=== PATIENT | male | born 1960 | race Caucasian/White ===

== ENCOUNTER 2019-11-22 14:30 | Observation (INO) | payer MEDICARE, MEDICAID ==
[~2019-11-22] VITALS: Ht 167.6 cm; Wt 82.6 kg
[2019-11-22] VITALS (8 sets, daily range): BP systolic 95–128; BP diastolic 63–81; BMI 29.4
--- NOTE | ~2019-11-22 | HEMODYNAMI ---
PATIENT:TIFF MORALES MEDICAL RECORD: [id number] : 60 LOCATION[facility] [id number] ADMISSION DATE: 11/22/19 Generatedon:11/23/201915:09 Patient name: TIFF MORALES Patient #: [id number] SSN: [id number] : 1960 Date of study: 11/23/2019 Page: Of Hemodynamic Procedure Report Patient Data Patient Demographics Procedure consent was obtained First Name: TIFF Gender: Male Last Name: CARMEN : 1960 Patient #: [id number] Age: 59 year(s) Race: SSN: [id number] Additional ID: [id number] Contact details [address]: [address] [place] [address] State: [place] City: [place] Zip code: [address] Past Medical History Allergies: No known allergies Admission Admission Data Admission Date: 11/22/2019 Admission Time: 15:15 Arrival Date: 11/23/2019 Arrival Time: 0:00 Room #: 2123 Insurance Payor: Medicare [facility] #: [id number] Height (in.): 66.14 BSA: 1.93 (m2) Height (cm.): 168 BMI: 29.41 (kg/m2) Weight (lbs.): 182.98 Weight (kg.): 83 Lab Results Lab Result Date: 11/23/2019 Lab Result Time: 0:00 Biochemistry Name Units Result Min Max BUN mg/dl 14 --(--*-)-- 7 18 CK-MB ng/ml 3.1 --(---*)-- 0 3.6 Creatinine mg/dl 1.1 --(--*-)-- 0.6 1.3 eGFR ml/min 73.94549 *-(----)-- 90 120 NONAFRICAN Troponin l ng/ml 0.017 --(-*--)-- 0 0.06 CBC Name Units Result Min Max Hematocrit % 46.4 --(-*--)-- 42 54 Hemoglobin g/dl 15.1 --(-*--)-- 13.5 17.5 Procedure Procedure Types Cath Procedure Diagnostic Procedure [facility] w/Coronaries w/Grafts Sedation Charges Moderate Sedation up to 15 minutes Procedure Description Procedure Date Procedure Date: 11/23/2019 Procedure Start Time: 14:46 Procedure End Time: 15:07 Procedure Staff Name Function Cameron Bal MD Performing Physician Shaye Schneider RT Monitor Joanna Lewis RT Scrub Andrés Vásquez RN Nurse Procedure Data Cath Procedure Fluoroscopy Diagnostic fluoroscopy Total fluoroscopy Time: 3.8 time: 3.8 min min Diagnostic fluoroscopy Total fluoroscopy dose: 628 dose: 628 mGy mGy Contrast Material Contrast Material Type Amount (ml) Isovue 300 62 Entry Location Entry Primary Successful Side Size Upsize Upsize Entry Closure Succes sful Closure Location (Fr) 1 (Fr) 2 (Fr) Remarks Device Remarks Femoral Left 5 Fr Exoseal artery Estimated blood loss: 5 ml Diagnostic catheters Device Type Used For End Catheter Placement MULTIPACK JL 4.0 5Fr Left Coronary catheter Angiography DIAGNOSTIC JL 5 5Fr Left Coronary catheter ([id number]) Angiography DIAGNOSTIC AR MOD 5Fr Procedure Catheter ([id number]) DIAGNOSTIC IM 5Fr Procedure catheter ([id number]) MULTIPACK Pigtail 5 Fr LV Angiography catheter Procedure Complications No complications Procedure Medications Medication Administration Route Dosage Oxygen etCO2 Nasal cannula 2 l/min Lidocaine 2% added to field 20 Heparin Flush Bag added to field 2 bags (1000units/500ml NS) 0.9% NaCl I.V. 100 ml/hr Benadryl I.V. 50 mg Heparin Drip (02671cuije/250 D5W) Versed I.V. 1 mg Fentanyl I.V. 50 mcg Zofran I.V. 4 mg Versed I.V. 1 mg Fentanyl I.V. 50 mcg Versed I.V. 1 mg Fentanyl I.V. 50 mcg Hemodynamics Rest BSA: 1.93 (m2) HGB: 15.1 (g/dl) O2 Consumption: Estimated: 263.36 (ml/min) O2 Co nsumption indexed: Estimated:136.46 (ml/min/m) Heart Rate: 120 (bpm) Pressure Samples Time Site Value (mmHg) Purpose Heart Use Rate(bpm) 15:00 LV 133/11,103 Snapshot 90 Gradients Valve Time Site Site Mean SEP/DFP Peak To Heart Use 1 2 (mmHg) (sec/min) Peak Rate (mmHg) (bpm) Aortic 15:01 LV AO 86 Snapshots Pre Cath Intra NCS Post Cath Vital Signs Time Heart Resp SPO2 etCO2 NIBP (mmHg) Rhythm Pain Sedation Rate (ipm) (%) (mmHg) Status Level (bpm) 14:27:25 61 15 95 0 141/68(109) NSR 0 (11) 10(A) , No pain 14:31:41 60 14 96 32.2 132/78(91) NSR 0 (11) 10(A) , No pain 14:35:59 71 17 98 27 131/81(113) NSR 0 (11) 10(A) , No pain 14:40:17 60 15 98 29.9 134/76(96) NSR 0 (11) 10(A) , No pain 14:44:37 60 19 94 27.7 124/80(100) NSR 0 (11) 10(A) , No pain 14:48:43 70 16 95 11.9 113/82(94) NSR 0 (11) 10(A) , No pain 14:52:55 68 12 96 0 121/75(97) NSR 0 (11) 9(A) , No pain 14:57:06 72 11 97 0 132/84(113) NSR 0 (11) 9(A) , No pain 15:01:25 68 10 96 4.4 123/79(98) NSR 0 (11) 9(A) , No pain 15:05:40 66 13 97 0 136/76(106) NSR 0 (11) 10(A) , No pain Medications Time Medication Route Dose Verified Delivered Reason Notes Effectiveness by by 14:20:11 Heparin Drip units/hr Cameron Buffie Per ([id number]/250 stopped Valeriano Vásquez RN physician D5W) for procedure 14:26:29 Oxygen etCO2 2 l/min Cameron Buffie used for Nasal Valreiano Vásquez RN procedure cannula 14:26:43 Lidocaine 2% added 20ml vial Cameron Buffie for local to Valeriano Vásquez RN anesthetic field 14:26:50 Heparin Flush added 2 bags Cameron Buffie used for Bag to Valeriano Vásquez RN procedure (1000units/500ml field NS) 14:26:59 0.9% NaCl I.V. 100 ml/hr Cameron Buffie Per Valeriano Vásquez RN physician 14:27:10 Benadryl I.V. 50 mg Cameron Buffie used for Valeriano Vásquez RN procedure 14:31:10 Zofran I.V. 4 mg Cameron Buffie Per Valeriano Vásquez RN physician 14:46:42 Versed I.V. 1 mg Cameron Buffie for Valeriano Vásquez RN sedation 14:46:59 Fentanyl I.V. 50 mcg Cameron Buffie for Valeriano Vásquez RN sedation 14:51:54 Versed I.V. 1 mg Cameron Buffie for Valeriano Vásquez RN sedation 14:51:58 Fentanyl I.V. 50 mcg Cameron Buffie for Valeriano Vásquez RN sedation 14:56:21 Versed I.V. 1 mg Cameron Buffie for Valeriano Vásquez RN sedation 14:56:24 Fentanyl I.V. 50 mcg Cameron Buffie for Valeriano Vásquez RN sedation Procedure Log Time Note 14:12:42 Informed consent obtained and on chart 14:13:55 Procedure Status Urgent Heart Cath (IP). 14:13:58 Andrés Vásquez RN sent for patient. Start room use. 14:14:01 Time tracking: Regular hours (M-F 7:00 - 5:00) 14:14:10 Plan of Care:Hemodynamics will remain stable., Cardiac rhythm will remain stable., Comfort level will be maintained., Respiratory function will remain adequate., Patient/ family verbilizes understanding of procedure., Procedure tolerated without complication., Recovers from procedure without complications.. 14:14:18 ACC Patient presents with Stable Angina CCS Anginal Class 3--Marked limitation of physical activity, angina occurs with ordinary activity.. 14:14:27 Arrival Date: 11/23/2019 12:00:00 AM 14:14:45 Insurance Payor : Medicare 14:14:49 Patient Height : 66.14 inches 14:14:55 Patient Weight : 182.98 lbs 14:20:11 Heparin Drip (90427hbjce/250 D5W) units/hr stopped for procedure was administered by Andrés Vásquez RN; Per physician; Verbal order read back and verified. 14:20:50 Patient received from Med II to CCL 1 Alert and oriented. Tansferred to table in Supine position. 14:26:03 Warm blankets applied, and mervin hugger turned on for patient comfort. 14:26:03 Correct patient and procedure confirmed by team. 14:26:04 ECG and BP/O2 sat monitors applied to patient. 14:26:06 Vital chart was started 14:26:09 Baseline sample Acquired. 14:26:16 Rhythm: sinus rhythm 14:26:19 Full Disclosure recording started 14::19 - 14:26:25 H&P Date Dictated: 11/23/2019 Within 30 days and on chart.. 14::26 Pre-procedure instructions explained to patient. 14::27 Pre-op teaching completed and patient verbalized understanding. 14:26:29 Oxygen 2 l/min etCO2 Nasal cannula was administered by Andrés Vásquez RN; used for procedure; Verbal order read back and verified. 14:26:38 Family unavailable. 14:26:43 Lidocaine 2% 20ml vial added to field was administered by Andrés Vásquez RN; for local anesthetic; Verbal order read back and verified. 14:26:50 Heparin Flush Bag (1000units/500ml NS) 2 bags added to field was administered by Andrés Vásquez RN; used for procedure; Verbal order read back and verified. 14:26:59 0.9% NaCl 100 ml/hr I.V. was administered by Andrés Vásquez RN; Per physician; Verbal order read back and verified. 14:27:10 Benadryl 50 mg I.V. was administered by Andrés Vásquez RN; used for procedure; Verbal order read back and verified. 14:27:22 Patient NPO since Midnight. 14:27:36 Patient allergic to No known allergies 14:27:45 Is the patient allergic to Iodine/contrast media? No. 14:27:48 Was the patient premedicated? Yes 14:27:52 Is patient on blood thinner?Yes 14:27:57 ACC The patient was administered the following blood thiners within the last 24 hours: ACCEffient 14:28:01 Patient diabetic? No. 14:28:04 ----Pre-sedation anethsthesia assessment.---- 14:28:08 Previous problem with sedation/anesthesia? No ? 14:28:11 Snore? Yes 14:28:14 Sleep apnea? Yes 14:28:16 Deviated septum? No 14:28:19 Opens mouth fully? Yes 14:28:21 Sticks out tongue? Yes 14:28:31 Airway obstruction? Yes COPO 14:28:40 Dentures? Yes IN TIGHT 14:28:49 Pre procedure: right dorsailis pedis pulse 1+ Palpable, but thready & weak; easily obliterated 14:29:00 IV patent on arrival in right antecubital with 0.9% NaCl at [facility]. 14:30:02 Lab Result : BUN 14 mg/dl 14:30:02 Lab Result : Creatinine 1.1 mg/dl 14:30:02 Lab Result : Troponin l 0.017 ng/ml 14:30:02 Lab Result : CK-MB 3.1 ng/ml 14:30:02 Lab Result : eGFR NONAFRICAN 73.59638 ml/min 14:30:02 Lab Result : Hemoglobin 15.1 g/dl 14:30:02 Lab Result : Hematocrit 46.4 % 14:30:11 Lab results completed and on chart. 14:30:37 Stress Test: no; N/A ? 14:30:42 Bilateral groins area was prepped with chlora-prep and draped in steril e fashion 14:30:45 Alarms reviewed by R. N. 14:30:46 Sharps counted by scrub and verified by R.N. 14:30:51 Use device set Femoral Dx 14:30:53 ACIST Syringe (76576) opened to sterile field. 14:30:54 Bag Decanter (2002S) opened to sterile field. 14:30:55 Medline Cath Pack ([id number]) opened to sterile field. 14:30:57 ACIST Hand Control (72055) opened to sterile field. 14:30:57 ACIST Manifold (02520) opened to sterile field. 14:30:59 DIAGNOSTIC Multipack 5Fr catheter set ([id number]) opened to sterile field. 14:31:00 Tegaderm 4 x 4 (1626W) opened to sterile field. 14:31:02 SHEATH 5FR [place] (CHE713) opened to sterile field. 14:31:03 EMERALD Guide Wire (265-487) opened to sterile field. 14:31:10 Zofran 4 mg I.V. was administered by Andrés Vásquez RN; Per physician; Verbal order read back and verified. 14:35:35 Zero performed for pressure channel P1 14:45:33 Physician arrived 14:45:34 --------ALL STOP TIME OUT------ 14:45:35 Final Timeout: patient, procedure, and site verified with staff and physician. All members of the team are in agreement. 14:45:56 Bilateral groins area was prepped with chlora-prep and draped in steril e fashion 14:46:08 Bilateral groins site verified by team. 14:46:20 Fire Safety Assessment: A--An alcohol-based skin anteseptic being used preoperatively., C--Open oxygen or nitrous oxide is being used., D--An ESU, laser, or fiber-optic light is being used. 14:46:24 Physical assessment completed. ASA score P 2 - A patient with mild systemic disease as per Cameron Bal MD. 14:46:31 2) 60-89 Mildly reduced kidney function, and other findings (as for stage 1) point to kidney disease. 14:46:37 Maximum allowable contrast dose (3.7 X eGFR X 0.75)202 ml. 14:46:42 Versed 1 mg I.V. was administered by Andrés Vásquez RN; for sedation; Verbal order read back and verified. 14:46:43 Sedation plan: IV Moderate Sedation Medication:Versed, Fentanyl 14:46:48 Procedure started. 14:46:56 Local anesthetic to left femerol artery with Lidocaine 2% by Cameron Bal MD.INITIAL ACCESS ONLY 14:46:59 Fentanyl 50 mcg I.V. was administered by Andrés Vásquez RN; for sedation; Verbal order read back and verified. 14:48:24 Risk of Mortality: 0.1 14:48:28 Risk of blood transfusion: 0.1 14:48:33 Risk of DAISY: 1.3 14:49:33 A 5 Fr sheath was inserted into the Left Femoral artery 14:50:33 A MULTIPACK JL 4.0 5Fr catheter was advanced over the wire and used for Left Coronary Angiography. 14:51:54 Versed 1 mg I.V. was administered by Andrés Vásquez RN; for sedation; Verbal order read back and verified. 14:51:58 Fentanyl 50 mcg I.V. was administered by Andrés Vásquez RN; for sedation; Verbal order read back and verified. 14:52:21 Catheter removed. 14:52:43 A DIAGNOSTIC JL 5 5Fr catheter ([id number]) was advanced over the wire and used for Left Coronary Angiography. 14:53:29 LCA angiography performed. 14:54:51 Catheter removed. 14:55:00 A DIAGNOSTIC AR MOD 5Fr Catheter (701984M) was advanced over the wire and used for Procedure. 14:56:21 Versed 1 mg I.V. was administered by Andrés Vásquez RN; for sedation; Verbal order read back and verified. 14:56:24 Fentanyl 50 mcg I.V. was administered by Andrés Vásquez RN; for sedation; Verbal order read back and verified. 14:57:06 SVG to Diag angiography performed. 14:57:10 SVG to RPDA occluded. 14:57:20 Injector settings: Ml/sec: 3, Volume: 6, 14:57:26 Catheter removed. 14:57:36 A DIAGNOSTIC IM 5Fr catheter (396254Y) was advanced over the wire and used for Procedure. 14:58:59 MORGAN to LAD angiography performed. 14:59:16 Injector settings: Ml/sec: 3, Volume: 6, 14:59:47 Catheter removed. 15:00:36 A MULTIPACK Pigtail 5 Fr catheter was advanced over the wire and used for LV Angiography. 15:00:45 LV gram done using YEE 15:00:48 Injector settings: Ml/sec: 5, Volume: 15, 15:01:04 LV hemodynamics recorded. 15:01:15 EF : 45 % 15:01:42 Catheter removed. 15:01:52 EXOSEAL 5Fr (EX500) opened to sterile field. 15:02:53 Sheath removed intact; hemostasis achieved with Exoseal to the Left Femoral artery. 15:02:57 Procedure ended.(Physican Out) 15:03:16 Contrast amount:Isovue 300 62ml. 15:03:23 Maximum allowable dose exceeded? No. 15:03:26 Sharps counted by scrub and verified by R.N. 15:04:14 Fluoroscopy time 03.80 minutes. 15:04:37 Flurop Dose total: 628 15:04:37 Fluoroscopy dose: 628 mGy 15:04:56 Dose Area Product 91748 mGy/cm. 15:05:02 Insertion/operative site no bleeding no hematoma. 15:05:09 Post-op/insertion site Left Femoral artery dressed using a 4 x 4 and Tegaderm. 15:05:17 Post left femerol artery:stable 15:05:21 Post Procedure Pulses reassessed and unchanged 15:05:26 Post-procedure physical assessment completed. ASA score P 2 - A patient with mild systemic disease as per Cameron Bal MD. 15:05:30 Post procedure rhythm: unchanged. 15:05:34 Estimated blood loss: 5 ml 15:05:36 Post procedure instruction explained to patient.Patient verbalizes understanding. 15:05:39 Patient needs reinforcement of post procedure teaching. 15:06:29 Procedure type changed to Cath procedure, Diagnostic procedure, LHC, C w/Coronaries w/Grafts, Sedation Charges, Moderate Sedation up to 15 minutes 15:06:57 Procedure and supply charges have been captured, reviewed, submitted an d are correct. 15:07:05 Procedure Complication : No complications 15:07:09 Vital chart was stopped 15:07:13 [facility] Findings: mild to moderate CAD (<70%) 15:07:16 Operative report dictated upon procedure completion. 15:07:17 See physician's report for complete and final results. 15:07:19 Report given to [facility]. 15:07:23 Patient transfered to [facility] II with Bed. 15:07:27 Procedure ended. 15:07:27 Full Disclosure recording stopped 15:07:30 End room use (Document Last) Device Usage Item Name Manufacture Quantity Catalog Hospital Part Current Minimal L ot# / Number Charge Number Stock Stock Serial# Code CELESTINOIST Acist 1 39734 [id number] 740835 256649 20 Syringe TouchMail (07789) Systems Inc Bag Microtek 1 594598 25348 283640 5 Decanter Medical Inc. () Medline Medline 1 [id number] 091530 23849 008341 5 Cath Pack ([id number]) ACIST Hand Acist 1 43373 912367 397073 680115 5 Control Medical (78529) Systems Inc ACIST Acist 1 73855 024961 040200 838845 5 Manifold Medical (97890) Systems Inc DIAGNOSTIC Cardinal 1 [id number] 117076 28487 154996 30 Multipack Health 5Fr catheter set (KI3712) Tegaderm 4 3M 1 1626W 870135 550427 931911 5 x 4 (1626W) SHEATH 5FR Terumo 1 [id number] 706853 531249 892961 5 [place] (MLS917) EMERALD Cardinal 1 502-455 775879 179716 943415 5 Guide Wire Health (502-455) MULTIPACK Cardinal 1 622029 5 JL 4.0 5Fr Health catheter DIAGNOSTIC Cardinal 1 [id number] 772173 141379 044411 5 JL 5 5Fr Health catheter (629481R) DIAGNOSTIC Cardinal 1 [id number] 690220 932390 534675 15 AR MOD 5Fr Health Catheter (070456A) DIAGNOSTIC Cardinal 1 [id number] 784978 406314 168382 5 IM 5Fr Health catheter (642230P) MULTIPACK Cardinal 1 973642 5 Pigtail 5 Health Fr catheter EXOSEAL 5Fr Cardinal 1 EX500 414630 271127 248991 10 (EX500) Health Signature Audit [place] Stage Time Signature Unsigned Intra-Procedure 11/23/2019 Shaye 3:07:58 PM Wyatt RT(R) (CV) Intra-Procedure 11/23/2019 Andrés Vásquez RN 3:08:26 PM Intra-Procedure 11/23/2019 Cameron Bal MD 3:08:57 PM [facility] [address] [place] [address]
[~2019-11-22 14:30] MED LIST: ALBUTEROL SULF8.5 GM INH; ANORO ELLIPTA1 EACH INH; BAYER CHEWABLE81 MG PO; CRESTOR40 MG PO; EFFIENT10 MG PO; ISOSORBIDE MONO60 M1 PO; LISINOPRIL5 MG PO; METOPROLOL TART50 MG PO; MYSOLINE 50 MG50 MG PO; NITROQUICK0.4 MG; REQUIP XL6 MG PO
--- NOTE | 2019-11-22 14:43 | NUR ---
PATIENT WAS GIVEN 324ASA PO BY EMS EN ROUTE
[2019-11-22 15:01] LABS: BASOPHILS 0.7 % (0-2); EOSINOPHILS 1.8 % (0-7); HEMATOCRIT 50.8 % (42.0-54.0); HEMOGLOBIN 17.3 g/dL (13.5-17.5); IMMATURE GRANULOCYTES 0.3 % (0-5); LYMPHOCYTES 23.8 % (15-50); MCHC 34.1 g/dL (31.0-37.0); MCV 93.9 fL (80.0-100.0); MEAN PLATELET VOLUME 8.8 fL (7.4-10.4); NEUTROPHILS 69.4 % (40-80); PLATELET COUNT 183 10x3/uL (130-400); RBC 5.41 10x6/uL (4.20-6.10); RDW 15.7 % (11.5-14.5); WBC 7.2 10x3/uL (4.8-10.8)
[2019-11-22 15:09] LABS: CALC OSMOLALITY 275 mosm/kg (275-300); CALCIUM 8.4 mg/dL (8.5-10.1); CARBON DIOXIDE 26.7 mmol/L (21.0-32.0); CHLORIDE - SERUM 105 mmol/L (98-107); CREATININE - SERUM 1.1 mg/dL (0.6-1.3); GLUCOSE 91 mg/dL (74-106); POTASSIUM - SERUM 4.2 mmol/L (3.5-5.1); SODIUM 138 mmol/L (136-145); UREA NITROGEN 13 mg/dL (7-18); eGFR NON AFRICAN AMERICAN 73 mL/min (90-120)
[2019-11-22 15:10] LABS: APTT 29.2 SECONDS (22.8-39.4); INR 1.02 (0.85-1.17); PROTIME 13.3 SECONDS (11.6-15.0)
[2019-11-22 15:25] LABS: ALBUMIN 3.5 g/dL (3.4-5.0); ALKALINE PHOSPHATASE 102 U/L (30-120); ALT (SGPT) 26 U/L (10-68); BILIRUBIN - TOTAL 0.53 mg/dL (0.2-1.3); CKMB 4.1 U/L (0.0-3.6); CREATINE KINASE 179 UL (21-232); MAGNESIUM - SERUM 2.2 mg/dL (1.8-2.4); PROTEIN - SERUM 7.1 g/dL (6.4-8.2)
[2019-11-22 15:30] LABS: TROPONIN-I < 0.017 ng/mL (0.000-0.060)
--- NOTE | 2019-11-22 15:43 | NUR ---
LOWERED HEAD OF BED D/T HYPOSTENSUIO
--- NOTE | 2019-11-22 17:01 | NUR ---
NS 0.9% 1000 ML INFUSING AT 125 ML/H UPON TRANSFER TO ROOM HEPARIN 02039 UNITS/250 ML INFUSING AT 1000 UNITS/H UPON TRANSFER TO ROOM REPORT GIVEN TO ROBERT SHERIDAN
[2019-11-22 20:42] LABS: CKMB 3.1 U/L (0.0-3.6); CREATINE KINASE 153 UL (21-232)
[2019-11-22 20:49] LABS: TROPONIN-I < 0.017 ng/mL (0.000-0.060)
[2019-11-23] VITALS: BP 87/57
--- NOTE | 2019-11-23 03:59 | NUR ---
RESTING ON LEFT SIDE, RESPERATIONS EVEN, NO S/S DISTRESS NOTED.
[2019-11-23 05:26] LABS: EOSINOPHILS 3.5 % (0-7); HEMATOCRIT 46.4 % (42.0-54.0); HEMOGLOBIN 15.1 g/dL (13.5-17.5); IMMATURE GRANULOCYTES 0.3 % (0-5); MCH 30.9 pg (26.0-34.0); MCHC 32.5 g/dL (31.0-37.0); MCV 94.9 fL (80.0-100.0); MEAN PLATELET VOLUME 9.4 fL (7.4-10.4); NEUTROPHILS 64.2 % (40-80); PLATELET COUNT 186 10x3/uL (130-400); RBC 4.89 10x6/uL (4.20-6.10); WBC 7.4 10x3/uL (4.8-10.8)
[2019-11-23 05:31] VITALS: BP 83/52
[2019-11-23 05:49] LABS: ALBUMIN 2.7 g/dL (3.4-5.0); ALKALINE PHOSPHATASE 88 U/L (30-120); BILIRUBIN - TOTAL 0.38 mg/dL (0.2-1.3); CALC OSMOLALITY 274 mosm/kg (275-300); CALCIUM 7.5 mg/dL (8.5-10.1); CARBON DIOXIDE 22.9 mmol/L (21.0-32.0); CHLORIDE - SERUM 106 mmol/L (98-107); CKMB 2.9 U/L (0.0-3.6); CREATINE KINASE 125 UL (21-232); CREATININE - SERUM 1.1 mg/dL (0.6-1.3); GLUCOSE 93 mg/dL (74-106); POTASSIUM - SERUM 3.9 mmol/L (3.5-5.1); PROTEIN - SERUM 5.8 g/dL (6.4-8.2); SODIUM 137 mmol/L (136-145); TROPONIN-I < 0.017 ng/mL (0.000-0.060); UREA NITROGEN 14 mg/dL (7-18); eGFR NON AFRICAN AMERICAN 73 mL/min (90-120)
[2019-11-23 05:50] LABS: ALT (SGPT) 19 U/L (10-68)
--- NOTE | 2019-11-23 06:28 | NUR ---
I have reviewed this patient and I concur with the Shift Assessment completed by the Licensed Practical Nurse today this shift.
[2019-11-23 08:19] VITALS: BP 99/61
[2019-11-23 09:50] LABS: CKMB 3.1 U/L (0.0-3.6); CREATINE KINASE 137 UL (21-232)
[2019-11-23 09:52] LABS: TROPONIN-I < 0.017 ng/mL (0.000-0.060)
[2019-11-23 12:21] VITALS: BP 124/63
[2019-11-23 13:30] VITALS: Ht 167.6 cm; Wt 82.6 kg
--- NOTE | 2019-11-23 14:14 | NUR ---
PT TO FIELD MACHINIST.
--- NOTE | 2019-11-23 15:20 | NUR ---
RECEIVED PT BACK TO ROOM 2122, PT A/OX4. VITAL SIGNS STABLE. PLACE ON FREQUENT VITAL SIGNS. PONCE CATHETER PLACED BY LEASE OUT MAN NURSE. INSTRUCTED PT TO LAY FLAT FOR 2HRS. LT GROIN DRESSING CDI. NO S/S OF BLEEDING OR HEMATOMA NOTED. PT DENIES ANY NEEDS AT THIS TIME. CALL LIGHT IN REACH, NAD NOTED,W ILL CONTINUE TO MONITOR.
--- NOTE | 2019-11-23 15:28 | NUR ---
11/23/2019 @ 1529 16 FR PONCE CATH INSERTED STERILE TECHNIQUE DUE TO PT REQUEST STATES HE IS ALWAYS UNABLE TO VOID AFTER PROCEDURE. TO BE REMOVED WHEN PT IS COMPLETED BEDREST.
[2019-11-23 15:29] LABS: BASOPHILS 1.1 % (0-2); EOSINOPHILS 3.2 % (0-7); HEMATOCRIT 49.5 % (42.0-54.0); HEMOGLOBIN 16.4 g/dL (13.5-17.5); IMMATURE GRANULOCYTES 0.2 % (0-5); LYMPHOCYTES 24.5 % (15-50); MCH 31.7 pg (26.0-34.0); MCHC 33.1 g/dL (31.0-37.0); MCV 95.7 fL (80.0-100.0); MEAN PLATELET VOLUME 9.1 fL (7.4-10.4); MONOCYTES 4.4 % (2-11); NEUTROPHILS 66.6 % (40-80); PLATELET COUNT 193 10x3/uL (130-400); RBC 5.17 10x6/uL (4.20-6.10); RDW 16.1 % (11.5-14.5); WBC 6.6 10x3/uL (4.8-10.8)
[2019-11-23 15:43] LABS: ANION GAP 15.7 mmol/L (8-16); CALCIUM 8.1 mg/dL (8.5-10.1); CARBON DIOXIDE 23.5 mmol/L (21.0-32.0); CHOL - HDL RATIO 4.7 ratio (2.3-4.9); CREATININE - SERUM 1.1 mg/dL (0.6-1.3); LDL-HDL RATIO 3.3 ratio (1.5-3.5); POTASSIUM - SERUM 4.2 mmol/L (3.5-5.1)
--- NOTE | 2019-11-23 16:30 | NUR ---
NO CHANGES TO LT GROIN. PT RESTING COMFORTABLY IN BED.
[2019-11-23] MEDS ORDERED: PROTONIX40 MG PO (16:52)
--- NOTE | 2019-11-23 18:00 | NUR ---
PROVIDED VERBAL AND WRITTEN DISCHARGE TEACHING TO PT, WHO VERBALIZED UNDERSTANDING REGARDING TEACHING. D/C RT AC AND RT HAND IV WITH CATHETER TIP INTACT. HEART MONITOR REMOVED AND TAKEN TO ROOFING LAYER. PT WAITING ON RIDE,W OLI NOTIFY NURSE WHEN READY FOR WHEELCHAIR.
--- NOTE | 2019-11-23 18:32 | NUR ---
PT LEFT UNIT VIA WHEELCHAIR, WITH ALL BELONGINGS, NAD NOTED.
== END 2019-11-23 18:32 | disposition home or self-care (01) ==
LOC: D.ER 14:30 → OBSVTIME 15:15 → D.M2 15:15
PROVIDERS: Family Medicine; Internal Medicine Cardiovascular Disease; ADMIT Emergency Medicine; ATTEND Emergency Medicine
DX: I25.110 Atherosclerotic heart disease of native coronary artery with unstable angina pectoris (principal); I10 Essential (primary) hypertension; E78.5 Hyperlipidemia, unspecified; J44.9 Chronic obstructive pulmonary disease, unspecified; F17.203 Nicotine dependence unspecified, with withdrawal; K21.9 Gastro-esophageal reflux disease without esophagitis; G25.81 Restless legs syndrome

== ENCOUNTER 2020-02-28 19:29 | Inpatient (IN) | payer MEDICARE, MEDICAID ==
[~2020-02-28] VITALS: Ht 167.6 cm; Wt 89.8 kg
--- NOTE | ~2020-02-28 | HEMODYNAMI ---
PATIENT:TIFF MORALES MEDICAL RECORD: [id number] : 60 LOCATION:[facility] [id number] ADMISSION DATE: 02/28/20 Generatedon:02/29/202012:02 Patient name: TIFF MORALES Patient #: [id number] SSN: [id number] : 1960 Date of study: 02/29/2020 Page: Of Hemodynamic Procedure Report Patient Data Patient Demographics Procedure consent was obtained First Name: TIFF Gender: Male Last Name: CARMEN : 1960 Patient #: [id number] Age: 59 year(s) Race: SSN: [id number] Additional ID: [id number] Contact details [address]: [address] [place] [address] State: [place] City: [place] Zip code: [address] Past Medical History Allergies: No known allergies Admission Admission Data Admission Date: 02/28/2020 Admission Time: 23:51 Arrival Date: 02/29/2020 Arrival Time: 0:00 Room #: [id number].2137 Insurance Payor: Medicare Height (in.): 66 BSA: 1.99 (m2) Height (cm.): 167.64 BMI: 31.96 (kg/m2) Weight (lbs.): 198 Weight (kg.): 89.81 Lab Results Lab Result Date: 02/29/2020 Lab Result Time: 0:00 Biochemistry Name Units Result Min Max CK-MB ng/ml 2.4 --(--*-)-- 0 3.6 Troponin l ng/ml 0.017 --(-*--)-- 0 0.06 CBC Name Units Result Min Max Hematocrit % 52.1 --(---*)-- 42 54 Hemoglobin g/dl 17.6 --(----)*- 13.5 17.5 Procedure Procedure Types Cath Procedure Diagnostic Procedure LHC LHC w/Coronaries w/Grafts Sedation Charges Moderate Sedation up to 45 minutes PCI Procedure PTCA PTCA Initial Hemochron ACT Test Peripheral Cath Diagnostic Procedure Peripheral vascular Intervention Angioplasty Angioplasty Iliac Initial Procedure Description Procedure Date Procedure Date: 02/29/2020 Procedure Start Time: 11:03 Procedure End Time: 11:55 Procedure Staff Name Function Desiree Rosas MD Performing Physician Andrés Vásquez RN Nurse Oralia Black RT Scrub Amairani Steele RT Monitor Procedure Data Cath Procedure Fluoroscopy Diagnostic fluoroscopy Total fluoroscopy Time: time: 17.9 min 17.9 min Diagnostic fluoroscopy Total fluoroscopy dose: dose: 1651 mGy 1651 mGy Contrast Material Contrast Material Type Amount (ml) Isovue 300 77 Entry Location Entry Primary Successful Side Size Upsize Upsize Entry Closure Succes sful Closure Location (Fr) 1 (Fr) 2 (Fr) Remarks Device Remarks Femoral Right 5 Fr 6 Fr Exoseal artery Short Estimated blood loss: 5 ml Diagnostic catheters Device Type Used For End Catheter Placement MULTIPACK JL 4.0 5Fr Left Coronary catheter Angiography DIAGNOSTIC JL 5 5Fr Left Coronary catheter ([id number]) Angiography MULTIPACK 3DRC 5Fr Right Coronary catheter Angiography DIAGNOSTIC AL1 5Fr Multi-vessel catheter ([id number]) Angiography DIAGNOSTIC AR MOD 5Fr Multi-vessel Catheter ([id number]) Angiography Procedure Complications No complications Procedure Medications Medication Administration Route Dosage Oxygen etCO2 Nasal cannula 2 l/min Lidocaine 2% added to field 20 Heparin Flush Bag added to field 2 bags (1000units/500ml NS) 0.9% NaCl I.V. 100 ml/hr Versed I.V. 1 mg 0.9% NaCl I.V. bolus 500 ml Heparin Bolus I.V. 6000 units Effient P.O. 10 mg Hemodynamics Rest BSA: 1.99 (m2) HGB: 17.6 (g/dl) O2 Consumption: Estimated: 223.83 (ml/min) O2 Co nsumption indexed: Estimated:112.48 (ml/min/m) Heart Rate: 56 (bpm) Pressure Samples Time Site Value (mmHg) Purpose Heart Use Rate(bpm) 11:44 AO 106/51(74) Snapshot 51 11:45 AO 91/55(71) Snapshot 79 11:50 AO 98/51(69) Snapshot 60 Snapshots Pre Cath Intra NCS Post Cath Vital Signs Time Heart Resp SPO2 etCO2 NIBP Rhythm Pain Sedation Rate (ipm) (%) (mmHg) (mmHg) Status Level (bpm) 10:52:12 62 21 94 29.1 110/66(76) NSR 0 (11) 10(A) , No pain 10:56:28 57 17 96 0 97/60(72) NSR 0 (11) 10(A) , No pain 11:00:40 63 17 95 14.9 102/56(78) NSR 0 (11) 10(A) , No pain 11:05:02 60 15 96 25.4 110/55(87) NSR 0 (11) 9(A) , No pain 11:09:16 54 16 96 24.7 99/64(86) NSR 0 (11) 9(A) , No pain 11:12:43 60 18 96 28.4 106/61(83) NSR 0 (11) 9(A) , No pain 11:16:55 60 17 96 26.9 100/58(84) NSR 0 (11) 9(A) , No pain 11:21:07 59 16 96 32.1 99/61(70) NSR 0 (11) 9(A) , No pain 11:25:19 55 19 97 32.1 103/59(81) NSR 0 (11) 9(A) , No pain 11:29:30 88 16 97 26.9 109/56(78) NSR 0 (11) 9(A) , No pain 11:33:45 62 16 98 27.7 93/60(72) NSR 0 (11) 9(A) , No pain 11:37:53 62 17 98 29.2 105/60(83) NSR 0 (11) 9(A) , No pain 11:42:04 60 17 97 26.9 114/66(96) NSR 0 (11) 9(A) , No pain 11:46:18 58 19 96 27.6 113/62(89) NSR 0 (11) 9(A) , No pain 11:50:28 60 18 97 11.9 100/67(77) NSR 0 (11) 10(A) , No pain 11:54:38 60 18 96 0 113/62(85) NSR 0 (11) 10(A) , No pain Medications Time Medication Route Dose Verified Delivered Reason Notes Effectiveness by by 10:56:56 Oxygen etCO2 2 Desiree Bowen used for Nasal l/min Ralph MD Vásquez guide dog mobility instructor cannula 10:57:08 Lidocaine 2% added 20ml Desiree Perales for local to vial Ralph Rosas MD anesthetic field 10:57:13 Heparin Flush added 2 Norred Norred used for Bag to bags Ralph Rosas MD procedure (1000units/500ml field NS) 10:57:23 0.9% NaCl I.V. 100 Norred Buffie Per physician ml/hr Ralph Vásquez RN 10:59:41 Versed I.V. 1 mg Norred Buffie for sedation Ralph Vásquez RN 11:06:01 0.9% NaCl I.V. 500 Norred Buffie Per physician bolus ml Ralph Vásquez RN 11:28:01 Heparin Bolus I.V. 6000 Norred Buffie for verif ied units Ralph Vásquez RN anticoagulation with dr perales. 11:55:26 Effient P.O. 10 mg Alered Buffie for Ralph Vásquez RN antiplatelet therapy Procedure Log Time Note 10:33:51 Informed consent obtained and on chart 10:35:20 Diagnostic Cath Status : Urgent 10:36:00 Procedure Status Urgent Heart Cath (IP). 10:36:02 Amairani Steele RT(R) sent for patient. Start room use. 10:36:03 Time tracking: Regular hours (M-F 7:00 - 5:00) 10:36:08 Plan of Care:Hemodynamics will remain stable., Cardiac rhythm will remain stable., Comfort level will be maintained., Respiratory function will remain adequate., Patient/ family verbilizes understanding of procedure., Procedure tolerated without complication., Recovers from procedure without complications.. 10:38:27 Lab Result : Troponin l 0.017 ng/ml 10:38:27 Lab Result : CK-MB 2.4 ng/ml 10:38:27 Lab Result : Hemoglobin 17.6 g/dl 10:38:27 Lab Result : Hematocrit 52.1 % 10:38:34 Patient received from Med II to CCL 1 Alert and oriented. Tansferred to table in Supine position. 10:39:10 H&P Date Dictated: 02/28/2020 Within 30 days and on chart.. 10:39:12 Pre-procedure instructions explained to patient. 10:39:12 Pre-op teaching completed and patient verbalized understanding. 10:39:14 Family unavailable. 10:39:15 Patient NPO since Midnight. 10:39:23 Patient allergic to No known allergies 10:39:28 Alarms reviewed by R. N. 10:39:28 Sharps counted by scrub and verified by R.N. 10:39:33 Stress Test: no; N/A ? 10:39:38 Lab results completed and on chart. 10:41:09 Arrival Date: 02/29/2020 12:00:00 AM 10:41:11 Patient Height : 66 inches 10:41:19 Patient Weight : 198 lbs 10:41:26 Insurance Payor : Medicare 10:51:03 Warm blankets applied, and mervin hugger turned on for patient comfort. 10:51:03 Correct patient and procedure confirmed by team. 10:51:04 ECG and BP/O2 sat monitors applied to patient. 10:51:05 Vital chart was started 10:51:06 Baseline sample Acquired. 10:51:09 Rhythm: sinus rhythm 10:51:11 Full Disclosure recording started 10:51:15 Is the patient allergic to Iodine/contrast media? No. 10:51:16 Was the patient premedicated? Yes 10:51:17 Is patient on blood thinner?Yes 10:51:20 ACC The patient was administered the following blood thiners within the last 24 hours: ACCEffient 10:51:23 Patient diabetic? No. 10:51:28 Previous problem with sedation/anesthesia? No ? 10:51:31 Snore? Yes 10:51:32 Sleep apnea? Yes 10:51:34 Deviated septum? No 10:51:35 Opens mouth fully? Yes 10:51:36 Sticks out tongue? Yes 10:51:52 Airway obstruction? Yes copd, asthma, bronchitis 10:51:55 Dentures? No ? 10:51:59 Pre procedure: right dorsailis pedis pulse 1+ Palpable, but thready & weak; easily obliterated 10:52:02 Pre procedure: left dorsailis pedis pulse 1+ Palpable, but thready & weak; easily obliterated 10:52:08 Patient pain scale 2/10 ?. 10:52:31 IV patent on arrival in right hand with 0.9% NaCl at [facility]. 10:53:00 Right groin area was prepped with chlora-prep and draped in sterile fashion 10:53:35 Physician arrived 10:53:36 --------ALL STOP TIME OUT------ 10:53:37 Final Timeout: patient, procedure, and site verified with staff and physician. All members of the team are in agreement. 10:53:39 Right groin site verified by team. 10:53:43 Fire Safety Assessment: A--An alcohol-based skin anteseptic being used preoperatively., C--Open oxygen or nitrous oxide is being used., D--An ESU, laser, or fiber-optic light is being used. 10:53:47 Physical assessment completed. ASA score P 2 - A patient with mild systemic disease as per Desiree Rosas MD. 10:53:53 Sedation plan: IV Moderate Sedation Medication:Versed, Fentanyl 10:54:33 Use device set Femoral Dx 10:54:34 ACIST Syringe (88983) opened to sterile field. 10:54:35 Bag Decanter (2002S) opened to sterile field. 10:54:35 Medline Cath Pack ([id number]) opened to sterile field. 10:54:36 ACIST Hand Control (58777) opened to sterile field. 10:54:36 ACIST Manifold (81999) opened to sterile field. 10:54:37 DIAGNOSTIC Multipack 5Fr catheter set (UY8735) opened to sterile field. 10:54:37 Tegaderm 4 x 4 (1626W) opened to sterile field. 10:54:39 SHEATH 5FR Hampton ([id number]) opened to sterile field. 10:54:40 EMERALD Guide Wire (205-447) opened to sterile field. 10:55:46 MICROPUNCTURE 4FR Cook (W36888) opened to sterile field. 10:56:56 Oxygen 2 l/min etCO2 Nasal cannula was administered by Andrés Vásquez RN; used for procedure; Verbal order read back and verified. 10:57:08 Lidocaine 2% 20ml vial added to field was administered by Desiree Rosas MD; for local anesthetic; Verbal order read back and verified. 10:57:13 Heparin Flush Bag (1000units/500ml NS) 2 bags added to field was administered by Desiree Rosas MD; used for procedure; Verbal order read back and verified. 10:57:23 0.9% NaCl 100 ml/hr I.V. was administered by Andrés Vásuqez RN; Per physician; Verbal order read back and verified. 10:59:41 Versed 1 mg I.V. was administered by Andrés Vásquez RN; for sedation; Verbal order read back and verified. 11:02:58 Procedure started. 11:03:01 Local anesthetic to right femoral artery with Lidocaine 2% by Desiree Rosas MD.INITIAL ACCESS ONLY 11:03:15 Access obtained with 4Fr micropunture. 11:03:20 A 5 Fr sheath was inserted into the Right Femoral artery 11:06:01 0.9% NaCl 500 ml I.V. bolus was administered by Andrés Vásquez RN; Per physician; Verbal order read back and verified. 11:08:08 A MULTIPACK JL 4.0 5Fr catheter was advanced over the wire and used for Left Coronary Angiography. 11:08:53 Catheter removed. unable to cannulate vessel. 11:10:13 A DIAGNOSTIC JL 5 5Fr catheter ([id number]) was advanced over the wire and used for Left Coronary Angiography. 11:10:56 LCA angiography performed. 11:11:00 Injector settings: Ml/sec: 2, Volume: 4, 11:11:47 Catheter removed. 11:12:15 A MULTIPACK 3DRC 5Fr catheter was advanced over the wire and used for Right Coronary Angiography. 11:14:35 SVG to RCA occluded. 11:14:46 RCA angiography performed. 11:15:04 Cheesh-Na RCA occluded 11:16:02 MORGAN angiography performed. 11:16:06 Injector settings: Ml/sec: 2, Volume: 4, 11:16:42 ACCDominant side:Left 11:18:05 A DIAGNOSTIC AL1 5Fr catheter ([id number]) was advanced over the wire and used for Multi-vessel Angiography. 11:23:16 Catheter removed. unable to cannulate vessel. 11:23:19 A DIAGNOSTIC AR MOD 5Fr Catheter ([id number]) was advanced over the wire and used for Multi-vessel Angiography. 11:25:27 Catheter removed. 11:25:47 SHEATH 6FR Hampton (AET216) opened to sterile field. 11:25:47 INFLATOR Merit BasixCompak (SF4388) opened to sterile field. 11:25:48 GUIDE 6FR LCB catheter (LA6LCB) opened to sterile field. 11:26:01 COPILOT Valve Control (5381249) opened to sterile field. 11:26:45 Sheath upsized to a 6 Fr Short. 11:27:03 BMW 300cm Stover 2 J wire ([id number]) opened to sterile field. 11:28:01 Heparin Bolus 6000 units I.V. was administered by Andrés Vásquez RN; for anticoagulation; verified with dr perales. Verbal order read back and verified. 11:28:11 ACC Pre-intervention JAYME Flow is 3. 11:28:38 Pre PCI Site: Vein Graft Diag1 has 90% stenosis. 11:28:44 6 Fr lcb guide catheter was inserted over the wire 11:31:38 bmw wire advanced. 11:34:58 Nitroglycerin mixed and placed onto field per Dr Perales. 11:35:26 Inflate balloon Inflation number: 1 A EUPHORA 2.5 x 20 Balloon ([id number]) was prepped and advanced across the Aorta Left -> 1st Diag 90, then inflated to 10 JENNY for 0:03 (min:sec) . 11:36:27 Inflation number: 2 The EUPHORA 2.5 x 20 Balloon ([id number]) was reinflated across the Aorta Left -> 1st Diag 90, to 4 JENNY for 0:10 (min:sec) . 11:36:43 Inflation number: 3 The EUPHORA 2.5 x 20 Balloon ([id number]) was reinflated across the Aorta Left -> 1st Diag 90, to 4 JENNY for 0:10 (min:sec) . 11:37:22 Inflation number: 4 The EUPHORA 2.5 x 20 Balloon ([id number]) was reinflated across the Aorta Left -> 1st Diag 90, to 8 JENNY for 0:10 (min:sec) 0. 11:37:39 Inflation number: 5 The EUPHORA 2.5 x 20 Balloon ([id number]) was reinflated across the Aorta Left -> 1st Diag 0, to 4 JENNY for 0:10 (min:sec) . 11:37:55 Inflation number: 6 The EUPHORA 2.5 x 20 Balloon ([id number]) was reinflated across the Aorta Left -> 1st Diag 90, to 6 JENNY for 0:10 (min:sec) 0. 11:38:17 Balloon removed over the wire. 11:42:49 Inflate balloon Inflation number: 7 A EUPHORA 2.0 x 30 Balloon ([id number]) was prepped and advanced across the Aorta Left -> 1st Diag 90, then inflated to 8 JENNY for 0:10 (min:sec) . 11:44:15 Balloon removed over the wire. 11:46:50 Procedure type changed to Cath procedure, Diagnostic procedure, LHC, LHC w/Coronaries w/Grafts, Sedation Charges, Moderate Sedation up to 45 minutes, PCI procedure, PTCA, PTCA Initial, Hemochron ACT Test, Peripheral Cath Diagnostic Procedure, Peripheral vascular Intervention, Angioplasty, Angioplasty Iliac Initial 11:47:12 right iliac angiography performed. 11:49:21 Inflate balloon Inflation number: 1 A POWERFLEX PRO 7.0 x 20 x 135 cm balloon ([id number]) was prepped and advanced across the Mid Common Iliac, Right 80, then inflated to 5 JENNY for 0:10 (min:sec) 0. 11:50:40 Balloon removed over the wire. 11:50:57 Sheath removed intact; hemostasis achieved with Exoseal to the Right Femoral artery. 11:51:04 EXOSEAL 6Fr (EX600) opened to sterile field. 11:51:08 Procedure ended.(Physican Out) 11:51:20 Fluoroscopy time 17.90 minutes. 11:51:25 Fluoroscopy dose: 1651 mGy 11:51:25 Flurop Dose total: 1651 11:51:32 Dose Area Product 221987 mGy/cm. 11:54:03 Contrast amount:Isovue 300 77ml. 11:54:22 Maximum allowable dose exceeded? No. 11:54:24 Sharps counted by scrub and verified by R.N. 11:54:34 Insertion/operative site no bleeding no hematoma. 11:54:37 Post-op/insertion site Right Femoral artery dressed using a 4 x 4 and Tegaderm. 11:54:40 Post Procedure Pulses reassessed and unchanged 11:54:43 Post procedure rhythm: unchanged. 11:55:07 Estimated blood loss: 5 ml 11:55:13 ACT drawn and resulted at 216 seconds. (normal therapeutic range 180-240 seconds). 11:55:23 Post procedure instruction explained to patient.Patient verbalizes understanding. 11:55:24 Patient needs reinforcement of post procedure teaching. 11:55:26 Effient 10 mg P.O. was administered by Andrés Vásquez RN; for antiplatelet therapy; Verbal order read back and verified. 11:55:28 Procedure Complication : No complications 11:55:30 Procedure and supply charges have been captured, reviewed, submitted and are correct. 11:55:31 Vital chart was stopped 11:55:35 [facility] Findings: MVD- PCI performed (see procedure note) 11:55:36 Operative report dictated upon procedure completion. 11:55:37 See physician's report for complete and final results. 11:55:41 Report given to [facility]. 11:55:44 Patient transfered to [facility] with Stretcher. 11:55:47 Procedure ended. 11:55:47 Full Disclosure recording stopped 11:55:57 ACC-PCI Only Patient was given prescriptions, or instructed by Desiree Rosas MD to start/continue the following medications upon discharge: Effient 11:56:01 End room use (Document Last) Intervention Summary Intervention Notes Time ActionType Lesion and Equipment Action# Pressure Duration Attributes Used 11:35:26 Inflate Aorta Left EUPHORA 1 10 00:03 balloon -> 1st Diag 2.5 x 20 Balloon ([id number]) 11:36:27 Reinflate Aorta Left EUPHORA 2 4 00:10 balloon -> 1st Diag 2.5 x 20 Balloon ([id number]) 11:36:43 Reinflate Aorta Left EUPHORA 3 4 00:10 balloon -> 1st Diag 2.5 x 20 Balloon ([id number]) 11:37:22 Reinflate Aorta Left EUPHORA 4 8 00:10 balloon -> 1st Diag 2.5 x 20 Balloon ([id number]) 11:37:39 Reinflate Aorta Left EUPHORA 5 4 00:10 balloon -> 1st Diag 2.5 x 20 Balloon ([id number]) 11:37:55 Reinflate Aorta Left EUPHORA 6 6 00:10 balloon -> 1st Diag 2.5 x 20 Balloon ([id number]) 11:42:49 Inflate Aorta Left EUPHORA 7 8 00:10 balloon -> 1st Diag 2.0 x 30 Balloon ([id number]) 11:49:21 Inflate Mid Common POWERFLEX 1 5 00:10 balloon Iliac, PRO 7.0 x Right 20 x 135 cm balloon ([id number]) Device Usage Item Name Manufacture Quantity Catalog Hospital Part Current Minimal Lot# / Number Charge Number Stock Stock Serial# Code ACIST Syringe Acist 1 28025 978612 599838 [id number] 20 (18195) Medical Systems Inc Bag Decanter Microtek 1 2001S 086386 25740 516864 5 (2001S) Medical Inc. Medline Cath Medline 1 [id number] 560681 85255 958381 5 Pack ([id number]) ACIST Hand Acist 1 88366 171618 688414 547948 5 Control Medical (50280) Systems Inc ACIST Acist 1 03816 544918 709013 998857 5 Manifold Medical (74333) Systems Inc DIAGNOSTIC Cardinal 1 LJ1696 342500 15020 858799 30 Multipack 5Fr Health catheter set (RB5297) Tegaderm 4 x 3M 1 1626W 377208 808175 197893 5 4 (1626W) SHEATH 5FR Terumo 1 KLG785 317664 160391 440797 5 Hampton (WIS635) EMERALD Guide Cardinal 1 502-455 354035 489877 059637 5 Wire Health (502-455) MICROPUNCTURE Roamz Medical 1 A77819 018375 407999 800680 5 4FR Roamz (P35612) MULTIPACK JL Cardinal 1 029129 5 4.0 5Fr Health catheter DIAGNOSTIC JL Cardinal 1 [id number] 433005 252836 197818 5 5 5Fr Health catheter (950092M) MULTIPACK Cardinal 1 723428 5 3DRC 5Fr Health catheter DIAGNOSTIC Cardinal 1 144565B 457780 671203 533694 15 AL1 5Fr Health catheter (125542H) DIAGNOSTIC AR Cardinal 1 [id number] 503222 509989 149305 15 MOD 5Fr Health Catheter (429623C) SHEATH 6FR Terumo 1 UFK151 613138 535225 650723 40 Hampton (YSU399) INFLATOR Merit 1 GW5456 633958 683867 804187 15 [facility] Medical BasixCompak (OG9307) GUIDE 6FR LCB Medtronic 1 LA6LCB 749131 35151 151899 1 catheter (LA6LCB) COPILOT Valve Sr 1 1841944 920855 891841 238438 5 Control Vascular (8937359) BMW 300cm Sr 1 6919095M 622258 213929 977509 5 Stover 2 J Vascular wire (9606587T) EUPHORA 2.5 x Medtronic 1 [id number] 229165 946599 653180 5 500098382 20 Balloon (AZM9271I) EUPHORA 2.0 x Medtronic 1 [id number] 133039 291702 146844 5 [id number] 30 Balloon ([id number]) POWERFLEX PRO Cardinal 1 [id number] 868773 024797 450916 5 7.0 x 20 x Health 135 cm balloon (1206970U) EXOSEAL 6Fr Cardinal 1 EX600 131282 415394 076942 10 (EX600) Health Signature Audit [place] Stage Time Signature Unsigned Intra-Procedure 02/29/2020 Amairani Steele 12:00:38 PM RT(R) Intra-Procedure 02/29/2020 Andrés Vásquez RN 12:01:27 PM Intra-Procedure 02/29/2020 Desiree Rosas MD 12:01:57 PM [place] [id number] [place] [address]
--- NOTE | 2020-02-28 01:00 | NUR ---
RECIVED PT FROM ER VIA STRECHTER ACCOMPPANIED BY HOSPITAL STAFF. NO SIGNS OF DISTRESS NOTED. RESPIRATIONS EVEN AND UNLABORED. CALL LIGHT WITH IN REACH. WILL CONTINUE TO MONITOR
[~2020-02-28 19:29] MED LIST changes: +PROTONIX40 MG PO
[2020-02-28 19:50] LABS: BASOPHILS 0.6 % (0-2); EOSINOPHILS 2.5 % (0-7); HEMATOCRIT 52.1 % (42.0-54.0); HEMOGLOBIN 17.6 g/dL (13.5-17.5); IMMATURE GRANULOCYTES 0.3 % (0-5); LYMPHOCYTES 21.1 % (15-50); MCH 32.1 pg (26.0-34.0); MCHC 33.8 g/dL (31.0-37.0); MCV 95.1 fL (80.0-100.0); MEAN PLATELET VOLUME 9.1 fL (7.4-10.4); MONOCYTES 5.1 % (2-11); NEUTROPHILS 70.4 % (40-80); PLATELET COUNT 190 10x3/uL (130-400); RBC 5.48 10x6/uL (4.20-6.10); RDW 15.6 % (11.5-14.5); WBC 10.1 10x3/uL (4.8-10.8)
[2020-02-28 19:58] LABS: APTT 27.1 SECONDS (22.8-39.4); INR 1.01 (0.85-1.17); PROTIME 13.3 SECONDS (11.6-15.0)
[2020-02-28 20:00] LABS: CALCIUM 8.5 mg/dL (8.5-10.1); CARBON DIOXIDE 26.4 mmol/L (21.0-32.0); CHLORIDE - SERUM 104 mmol/L (98-107); CREATININE - SERUM 1.5 mg/dL (0.6-1.3); POTASSIUM - SERUM 4.1 mmol/L (3.5-5.1); SODIUM 139 mmol/L (136-145); UREA NITROGEN 21 mg/dL (7-18); eGFR NON AFRICAN AMERICAN 51 mL/min (90-120)
[2020-02-28 20:16] LABS: ALKALINE PHOSPHATASE 101 U/L (30-120); ALT (SGPT) 25 U/L (10-68); BILIRUBIN - TOTAL 0.47 mg/dL (0.2-1.3); CKMB 3.5 U/L (0.0-3.6); CREATINE KINASE 340 UL (21-232); PROTEIN - SERUM 7.1 g/dL (6.4-8.2)
[2020-02-28 20:27] LABS: CALC OSMOLALITY 281 mosm/kg (275-300); GLUCOSE 118 mg/dL (74-106)
[2020-02-28 20:38] LABS: TROPONIN-I < 0.017 ng/mL (0.000-0.060)
[2020-02-28 20:39] LABS: MAGNESIUM - SERUM 2.2 mg/dL (1.8-2.4)
[2020-02-28 20:44] LABS: ALBUMIN 3.5 g/dL (3.4-5.0)
[2020-02-28 21:30] VITALS: BP 108/64
--- NOTE | 2020-02-28 23:45 | NUR ---
PT UPDATED ON PLAN OF CARE, RESTING IN HIGH FOWLERS POSITION. DENIES ANY CURRENT NEEDS. WILL CONTINUE TO MONITOR.
--- NOTE | 2020-02-29 03:22 | NUR ---
PT LYING IN BED AWAKE ALERT AND ORIENTED x4. NO SIGNS OR SYMPTOMS OF DISTRESS NOTED. RESPIRATIONS EVEN AND UNLABORED. PT C/O / PAIN LEVEL PRN PAIN MEDICATION ADMINISTERED. PT HAS NO OTHER COMPLAINTS. PT REFUSES TO SEND PERSONAL BELONGINGS TO SAFE. CALL LIGHT AND OTHER PERSONAL ITEMS WITH IN REACH. BED IS IN ITS LOWEST POSITION. WILL CONTINUE TO MONITOR
--- NOTE | 2020-02-29 03:28 | NUR ---
PT C/O ITCHING. WILL ADMINISTER PRN BENADRYL PER ORDER. CALL LIGHT WITH IN REACH. WILL CONTINUE TO MONITOR
[2020-02-29 03:33] LABS: CKMB 2.4 U/L (0.0-3.6); CREATINE KINASE 215 UL (21-232); TROPONIN-I < 0.017 ng/mL (0.000-0.060)
[2020-02-29 04:00] VITALS: BP 100/54
[2020-02-29 05:16] VITALS: Ht 167.6 cm; Wt 89.8 kg
[2020-02-29 06:44] LABS: BASOPHILS 1.1 % (0-2); EOSINOPHILS 3.8 % (0-7); HEMATOCRIT 47.6 % (42.0-54.0); HEMOGLOBIN 15.6 g/dL (13.5-17.5); IMMATURE GRANULOCYTES 0.1 % (0-5); LYMPHOCYTES 29.9 % (15-50); MCH 31.6 pg (26.0-34.0); MCHC 32.8 g/dL (31.0-37.0); MCV 96.6 fL (80.0-100.0); MEAN PLATELET VOLUME 9.4 fL (7.4-10.4); MONOCYTES 6.3 % (2-11); NEUTROPHILS 58.8 % (40-80); PLATELET COUNT 189 10x3/uL (130-400); RBC 4.93 10x6/uL (4.20-6.10); RDW 16.1 % (11.5-14.5)
[2020-02-29 06:47] LABS: ANION GAP 12.3 mmol/L (8-16); CALCIUM 8.1 mg/dL (8.5-10.1); CREATININE - SERUM 1.2 mg/dL (0.6-1.3); POTASSIUM - SERUM 4.3 mmol/L (3.5-5.1)
[2020-02-29 06:52] LABS: WBC 7.1 10x3/uL (4.8-10.8)
--- NOTE | 2020-02-29 08:13 | NUR ---
RESTING IN BED, NO DISTRESS NOTED, NPO FOR CATH TODAY, O2 PER NC, DENIES PAIN
[2020-02-29 08:49] LABS: ALT (SGPT) 19 U/L (10-68); CHOL - HDL RATIO 5.3 ratio (2.3-4.9); CHOLESTEROL, TOTAL 192 mg/dL (0-200); CKMB 2.9 U/L (0.0-3.6); CREATINE KINASE 216 UL (21-232); HDL CHOLESTEROL 36 mg/dL (32-96); LDL CHOLESTEROL 145 mg/dL (0-100); TRIGLYCERIDE 59 mg/dL (30-200); TROPONIN-I < 0.017 ng/mL (0.000-0.060)
[2020-02-29 10:28] VITALS: BP 119/68
--- NOTE | 2020-02-29 10:36 | NUR ---
TAKEN TO PREFORM MACHINE OPERATOR PER BED
--- NOTE | 2020-02-29 12:21 | NUR ---
RETURNED TO UNIT FROM AND DRYING SUPERVISOR COOKING CASING, DRESSING TO R GROIN DRY AND INTACT, LAYING FLAT, CONT TO MONITOR
--- NOTE | 2020-02-29 18:17 | NUR ---
IV REMOVED, TIP INTACT, BLEEDING CONTROLLED, REVIEWED DC ORDERS, VOICED NO CONCERNS, TAKEN FROM HOSPITAL PER WC
== END 2020-02-29 18:18 | disposition home or self-care (01) | DRG 251 ==
LOC: D.ER 19:29 → D.EDHOLD 23:48 → D.M2 23:51 → D.ER 23:51 → D.M2 02-29 00:27
PROVIDERS: Family Medicine; Internal Medicine Cardiovascular Disease; ADMIT Family Medicine; ATTEND Family Medicine
PROC: 047H3ZZ Dilation of Right External Iliac Artery, Percutaneous Approach (ICD-10-PCS; 2020-02-29)
PROC: B2051ZZ Plain Radiography of Left Heart using Low Osmolar Contrast (ICD-10-PCS; 2020-02-29)
PROC: B2011ZZ Plain Radiography of Multiple Coronary Arteries using Low Osmolar Contrast (ICD-10-PCS; 2020-02-29)
PROC: 4A023N7 Measurement of Cardiac Sampling and Pressure, Left Heart, Percutaneous Approach (ICD-10-PCS; 2020-02-29)
PROC: B2081ZZ Plain Radiography of Left Internal Mammary Bypass Graft using Low Osmolar Contrast (ICD-10-PCS; principal; 2020-02-29 10:36)
PROC: 02703ZZ Dilation of Coronary Artery, One Artery, Percutaneous Approach (ICD-10-PCS; 2020-02-29 10:36)
DX: I25.110 Atherosclerotic heart disease of native coronary artery with unstable angina pectoris (principal); F17.203 Nicotine dependence unspecified, with withdrawal; I71.4 Abdominal aortic aneurysm, without rupture; I10 Essential (primary) hypertension; J44.9 Chronic obstructive pulmonary disease, unspecified; K21.9 Gastro-esophageal reflux disease without esophagitis; K44.9 Diaphragmatic hernia without obstruction or gangrene; M19.90 Unspecified osteoarthritis, unspecified site; F17.200 Nicotine dependence, unspecified, uncomplicated

== ENCOUNTER 2020-12-05 22:21 | Emergency (ER) | payer MEDICARE, MEDICAID ==
[~2020-12-05] VITALS: Ht 167.6 cm; Wt 90.0 kg
[~2020-12-05 22:21] MED LIST changes: +CRESTOR10 MG PO; +ELIQUIS5 MG PO; +NITROQUICK0.4 MG SL; +RANEXA500 MG PO; +ROPINIROLE HCL2 MG PO; +Requip PO
[2020-12-05 22:24] VITALS: Ht 167.6 cm; Wt 90.0 kg
[2020-12-05] MEDS ORDERED: PROTONIX20 MG (22:27)
[2020-12-05] MEDS ORDERED: HYDROCODON-ACE1 EAC7 PO (23:35)
[2020-12-05 23:53] VITALS: BP 159/79
== END 2020-12-05 23:48 | disposition home or self-care (01) ==
LOC: D.ER 22:21
DX: I71.4 Abdominal aortic aneurysm, without rupture (principal); M51.36 Other intervertebral disc degeneration, lumbar region; I10 Essential (primary) hypertension; J44.9 Chronic obstructive pulmonary disease, unspecified; K21.9 Gastro-esophageal reflux disease without esophagitis

== ENCOUNTER 2021-01-09 21:49 | Emergency (ER) | payer MEDICARE, MEDICAID ==
[~2021-01-09] VITALS: Ht 167.6 cm; Wt 86.4 kg
[~2021-01-09 21:49] MED LIST changes: +HYDROCODON-ACE1 EAC7 PO; +PROTONIX20 MG
[2021-01-09 21:53] VITALS: Ht 167.6 cm; Wt 86.4 kg
[2021-01-09 22:08] LABS: BASOPHILS 0.3 % (0-2); EOSINOPHILS 0.3 % (0-7); HEMATOCRIT 49.1 % (42.0-54.0); HEMOGLOBIN 16.6 g/dL (13.5-17.5); IMMATURE GRANULOCYTES 0.4 % (0-5); LYMPHOCYTE ABS# 1.22 10x3/uL (1.32-3.57); LYMPHOCYTES 13.1 % (15-50); MCH 31.5 pg (26.0-34.0); MCHC 33.8 g/dL (31.0-37.0); MCV 93.2 fL (80.0-100.0); MEAN PLATELET VOLUME 9.2 fL (7.4-10.4); MONOCYTES 2.8 % (2-11); NEUTROPHIL ABS# 7.71 10x3/uL (1.78-5.38); NEUTROPHILS 83.1 % (40-80); RBC 5.27 10x6/uL (4.20-6.10); RDW 14.6 % (11.5-14.5); WBC 9.3 10x3/uL (4.8-10.8)
[2021-01-09 22:10] LABS: PLATELET COUNT 243 10x3/uL (130-400)
[2021-01-09 22:20] LABS: APTT 24.5 SECONDS (22.8-39.4); CALC OSMOLALITY 283 mosm/kg (275-300); CALCIUM 9.2 mg/dL (8.5-10.1); CARBON DIOXIDE 22.1 mmol/L (21.0-32.0); CHLORIDE - SERUM 104 mmol/L (98-107); CREATININE - SERUM 1.4 mg/dL (0.6-1.3); GLUCOSE 124 mg/dL (74-106); INR 1.01 (0.85-1.17); POTASSIUM - SERUM 4.4 mmol/L (3.5-5.1); PROTIME 12.3 SECONDS (11.6-15.0); SODIUM 141 mmol/L (136-145); UREA NITROGEN 19 mg/dL (7-18); eGFR NON AFRICAN AMERICAN 55 mL/min (90-120)
[2021-01-09 22:35] LABS: ALKALINE PHOSPHATASE 101 U/L (30-120); ALT (SGPT) 38 U/L (10-68); CKMB 4.4 U/L (0.0-3.6); CREATINE KINASE 329 UL (21-232); PROTEIN - SERUM 7.6 g/dL (6.4-8.2)
[2021-01-09 22:50] LABS: ALBUMIN 3.6 g/dL (3.4-5.0); TROPONIN-I < 0.017 ng/mL (0.000-0.060)
[2021-01-09 22:52] LABS: MAGNESIUM - SERUM 2.3 mg/dL (1.8-2.4)
[2021-01-09] MEDS ORDERED: METHOCARBAMOL500 MG PO (23:56)
[2021-01-09] MEDS ORDERED: HYDROCODON-ACE1 EAC7 PO (23:56)
[2021-01-10 00:05] VITALS: BP 145/82
== END 2021-01-10 00:32 | disposition home or self-care (01) ==
LOC: D.ER 21:49
PROVIDERS: Family Medicine
DX: S80.211A Abrasion, right knee, initial encounter (principal); S29.012A Strain of muscle and tendon of back wall of thorax, initial encounter; I71.4 Abdominal aortic aneurysm, without rupture; S16.1XXA Strain of muscle, fascia and tendon at neck level, initial encounter; S20.219A Contusion of unspecified front wall of thorax, initial encounter; N18.9 Chronic kidney disease, unspecified; S70.02XA Contusion of left hip, initial encounter; S80.01XA Contusion of right knee, initial encounter; V29.9XXA Motorcycle rider (driver) (passenger) injured in unspecified traffic accident, initial encounter; Y93.9 Activity, unspecified; Y92.9 Unspecified place or not applicable; J44.9 Chronic obstructive pulmonary disease, unspecified; Z72.0 Tobacco use; R07.9 Chest pain, unspecified

== ENCOUNTER 2021-01-16 12:15 | Emergency (ER) | payer MEDICARE, MEDICAID ==
[~2021-01-16] VITALS: Ht 167.6 cm; Wt 88.6 kg
[~2021-01-16 12:15] MED LIST changes: +METHOCARBAMOL500 MG PO
[2021-01-16 12:35] VITALS: Ht 167.6 cm; Wt 88.6 kg
[2021-01-16] MEDS ORDERED: HYDROCODON-ACE1 EAC7 PO (13:46)
[2021-01-16 14:03] VITALS: BP 120/78
== END 2021-01-16 14:03 | disposition home or self-care (01) ==
LOC: D.ER 12:15
DX: S22.31XD Fracture of one rib, right side, subsequent encounter for fracture with routine healing (principal); M25.512 Pain in left shoulder; V29.9XXD Motorcycle rider (driver) (passenger) injured in unspecified traffic accident, subsequent encounter; J44.9 Chronic obstructive pulmonary disease, unspecified; K21.9 Gastro-esophageal reflux disease without esophagitis; Z72.0 Tobacco use

== ENCOUNTER 2021-02-12 18:30 | Observation (INO) | payer MEDICARE, MEDICAID ==
[~2021-02-12] VITALS: Ht 167.6 cm; Wt 89.5 kg
--- NOTE | ~2021-02-12 | HEMODYNAMI ---
PATIENT:TIFF MORALES MEDICAL RECORD: [id number] : 60 LOCATION:[facility] D.2118 ADMISSION DATE: 02/12/21 Generatedon:116:41 Patient name: TIFF MORALES Patient #: [id number] SSN: [id number] : 1960 Date of study: 02/14/2021 Page: Of Hemodynamic Procedure Report Patient Data Patient Demographics Procedure consent was obtained First Name: TIFF Gender: Male Last Name: CARMEN : 1960 Patient #: [id number] Age: 60 year(s) Race: SSN: [id number] Additional ID: [id number] Contact details Address: [address] [place] [address] State: [place] City: [place] Zip code: [address] Past Medical History Allergies: No known allergies Admission Admission Data Admission Date: 02/12/2021 Admission Time: 21:22 Arrival Date: 02/14/2021 Arrival Time: 0:00 Room #: D.2118 Height (in.): 65.75 BSA: 1.99 (m2) Height (cm.): 167 BMI: 32.27 (kg/m2) Weight (lbs.): 198.42 Weight (kg.): 90 Lab Results Lab Result Date: 02/14/2021 Lab Result Time: 0:00 Biochemistry Name Units Result Min Max BUN mg/dl 13 --(--*-)-- 7 18 Creatinine mg/dl 1.3 --(---*)-- 0.6 1.3 eGFR ml/min 60 *-(----)-- 90 120 NONAFRICAN Procedure Procedure Types Cath Procedure Diagnostic Procedure LHC LHC w/Coronaries w/Grafts Sedation Charges Moderate Sedation 10-24 minutes PCI Procedure Hemochron ACT Test PTCA PTCA Initial Procedure Description Procedure Date Procedure Date: 02/14/2021 Procedure Start Time: 16:12 Procedure End Time: 16:39 Procedure Staff Name Function Klever Carrasquillo MD Performing Physician Luke Seymour RT Monitor Sara Michael RT Scrub Andrés Vásquez RN Nurse Procedure Data Cath Procedure Fluoroscopy Diagnostic fluoroscopy Total fluoroscopy Time: 4.6 time: 4.6 min min Diagnostic fluoroscopy Total fluoroscopy dose: 798 dose: 798 mGy mGy Contrast Material Contrast Material Type Amount (ml) Isovue 300 84 Entry Location Entry Primary Successful Side Size Upsize Upsize Entry Closure Succes sful Closure Location (Fr) 1 (Fr) 2 (Fr) Remarks Device Remarks Femoral Right 5 Fr 6 Fr Exoseal artery Short Estimated blood loss: 5 ml Diagnostic catheters Device Type Used For End Catheter Placement DIAGNOSTIC JL 5 5Fr Left Coronary catheter ([id number]) Angiography DIAGNOSTIC 3DRC 5Fr Right Coronary catheter ([id number]) Angiography DIAGNOSTIC Pigtail 5Fr LV Angiography catheter ([id number]) Procedure Complications No complications Procedure Medications Medication Administration Route Dosage Oxygen etCO2 Nasal cannula 2 l/min Zofran I.V. 4 mg Heparin Flush Bag added to field 2 bags (1000units/500ml NS) 0.9% NaCl I.V. 100 ml/hr Lidocaine 2% added to field 20 Versed I.V. 1 mg Fentanyl I.V. 50 mcg Versed I.V. 1 mg Fentanyl I.V. 50 mcg Heparin Bolus I.V. 5000 units Integrilin (Bolus I.V. 7.9 ml 2mg/ml) Plavix P.O. 600 mg Hemodynamics Rest BSA: 1.99 (m2) O2 Consumption: Estimated: 236.28 (ml/min) O2 Consumption indexed : Estimated:118.73 (ml/min/m) Heart Rate: 73 (bpm) Pressure Samples Time Site Value (mmHg) Purpose Heart Use Rate(bpm) 16:24 LV 125/18,40 EDP 111 Gradients Valve Time Site Site Mean SEP/DFP Peak To Heart Use 1 2 (mmHg) (sec/min) Peak Rate (mmHg) (bpm) Aortic 16:24 LV AO 84 Snapshots Pre Cath Intra NCS Post Cath Vital Signs Time Heart Resp SPO2 etCO2 NIBP (mmHg) Rhythm Pain Sedation Rate (ipm) (%) (mmHg) Status Level (bpm) 15:51:04 76 18 93 0 125/80(98) NSR 0 (11) 10(A) , No pain 15:55:14 73 24 91 0 120/75(92) NSR 0 (11) 10(A) , No pain 15:59:23 75 15 92 0.7 105/71(88) NSR 0 (11) 10(A) , No pain 16:03:29 76 17 94 0 121/69(111) NSR 0 (11) 10(A) , No pain 16:07:41 72 16 92 2.2 122/66(92) NSR 0 (11) 10(A) , No pain 16:11:51 74 21 96 1.4 122/73(96) NSR 0 (11) 10(A) , No pain 16:16:01 73 19 97 1.4 110/73(87) NSR 0 (11) 9(A) , No pain 16:21:00 79 17 95 0.7 113/69(91) NSR 0 (11) 9(A) , No pain 16:25:59 76 17 96 3.7 113/69(88) NSR 0 (11) 9(A) , No pain 16:30:05 80 17 96 1.4 108/73(82) NSR 0 (11) 9(A) , No pain 16:34:09 79 17 96 2.2 114/74(88) NSR 0 (11) 10(A) , No pain 16:38:14 76 20 3.7 127/76(101) NSR 0 (11) 10(A) , No pain Medications Time Medication Route Dose Verified Delivered Reason Notes Effectiveness by by 15:53:45 Oxygen etCO2 2 Klever Bowen used for Nasal l/min St Sukumar Vásquez RN procedure cannula 15:54:03 Zofran I.V. 4 mg Klever Bowen Per physician St Sukumar Vásquez RN, MD 15:54:15 Heparin Flush added 2 Klever Ernst used for Bag to bags [facility] John procedure (1000units/500ml field MD HANCOCK NS) 15:56:02 0.9% NaCl I.V. 100 Klever Bowen used for ml/hr St Sukumar abrams MD 15:56:23 Lidocaine 2% added 20ml Klever Ernst for local to vial [facility] John anesthetic field MD HANCOCK 16:11:54 Versed I.V. 1 mg Klever Bowen for sedation St Sukumar Vásquez RN, MD 16:12:01 Fentanyl I.V. 50 Klever Bowen for sedation mcg St Sukumar Vásquez RN, MD 16:19:52 Versed I.V. 1 mg Klever Bowen for sedation St Sukumar Vásquez RN, MD 16:19:55 Fentanyl I.V. 50 Klever Bowen for sedation mcg St Sukumar Vásquez RN, MD 16:27:54 Heparin Bolus I.V. 5000 Klever Bowen for verif ied units St Sukumar Vásquez RN anticoagulation with dr MD alas 16:29:48 Integrilin I.V. 7.9 Klever Bowen for waste d (Bolus 2mg/ml) ml St Sukumar Vásquez RN antiplatelet 2.1 ml MD therapy of vial 16:35:49 Plavix P.O. 600 Klever Bowen for mg St Sukumar Vásquez RN antiplatelet therapy Procedure Log Time Note 15:35:59 Informed consent obtained and on chart 15:36:24 Procedure Status Urgent Heart Cath (IP). 15:36:25 Time tracking: Regular hours (M-F 7:00 - 5:00) 15:36:28 Plan of Care:Hemodynamics will remain stable., Cardiac rhythm will remain stable., Comfort level will be maintained., Respiratory function will remain adequate., Patient/ family verbilizes understanding of procedure., Procedure tolerated without complication., Recovers from procedure without complications.. 15:36:30 Andrés Vásquez RN sent for patient. Start room use. 15:37:25 H&P Date Dictated: 02/12/2021 ER History on chart.. 15:45:28 Patient received from PCU to CCL 2 Alert and oriented. Tansferred to table in Supine position. 15:45:31 Warm blankets applied, and mervin hugger turned on for patient comfort. 15:45:31 Correct patient and procedure confirmed by team. 15:45:31 ECG and BP/O2 sat monitors applied to patient. 15:45:32 Full Disclosure recording started 15:49:59 Vital chart was started 15:50:01 Baseline sample Acquired. 15:50:05 Rhythm: sinus rhythm 15:50:08 Pre-procedure instructions explained to patient. 15:50:09 Pre-op teaching completed and patient verbalized understanding. 15:50:10 Family unavailable. 15:50:11 Patient NPO since Midnight. 15:51:02 Patient allergic to No known allergies 15:51:05 Is patient on blood thinner?Yes 15:51:18 PATIENT TAKES ELIQUIS 15:51:21 Patient diabetic? No. 15:51:33 Previous problem with sedation/anesthesia? Yes NAUSEA 15:51:34 Snore? Yes 15:51:35 Sleep apnea? No 15:51:36 Deviated septum? No 15:51:36 Opens mouth fully? Yes 15:51:37 Sticks out tongue? Yes 15:51:51 Airway obstruction? Yes COPD 15:51:53 Dentures? No ? 15:51:56 Pre procedure: right dorsailis pedis pulse 1+ Palpable, but thready & weak; easily obliterated 15:52:06 IV patent on arrival in right antecubital with 0.9% NaCl at [facility]. 15:52:52 Lab Result : BUN 13 mg/dl 15:52:52 Lab Result : eGFR NONAFRICAN 60 ml/min 15:52:52 Lab Result : Creatinine 1.3 mg/dl 15:53:05 Patient pain scale 3/10 ?. 15:53:09 Lab results completed and on chart. 15:53:12 Right groin area was prepped with chlora-prep and draped in sterile fashion 15:53:13 Alarms reviewed by R. N. 15:53:13 Sharps counted by scrub and verified by R.N. 15:53:16 Use device set Femoral Dx 15:53:16 ACIST Syringe (54114) opened to sterile field. 15:53:17 Bag Decanter (2002S) opened to sterile field. 15:53:18 ACIST Hand Control (97357) opened to sterile field. 15:53:18 ACIST Manifold (04768) opened to sterile field. 15:53:19 Tegaderm 4 x 4 (1626W) opened to sterile field. 15:53:19 Medline Cath Pack ([id number]) opened to sterile field. 15:53:21 SHEATH 5FR [place] (YBN126) opened to sterile field. 15:53:22 EMERALD Guide Wire (665-421) opened to sterile field. 15:53:43 IV Extension Set opened to sterile field. 15:53:45 Oxygen 2 l/min etCO2 Nasal cannula was administered by Andrés Vásquez RN; used for procedure; Verbal order read back and verified. 15:54:03 Zofran 4 mg I.V. was administered by Andrés Vásquez RN; Per physician; Verbal order read back and verified. 15:54:15 Heparin Flush Bag (1000units/500ml NS) 2 bags added to field was administered by Klever Carrasquillo MD; used for procedure; Verbal order read back and verified. 15:56:01 Patient Weight : 198.42 lbs 15:56:02 0.9% NaCl 100 ml/hr I.V. was administered by Andrés Vásquez RN; used for procedure; Verbal order read back and verified. 15:56:05 Patient Height : 65.75 inches 15:56:09 Arrival Date: 02/14/2021 12:00:00 AM 15:56:23 Lidocaine 2% 20ml vial added to field was administered by Klever Carrasquillo MD; for local anesthetic; Verbal order read back and verified. 16:05:09 Zero performed for pressure channel P1 16:09:44 Risk of Mortality: <1% 16:09:52 Risk of blood transfusion: 1% 16:09:58 Risk of DAISY: .4% 16:09:59 Physician arrived 16:10:00 --------ALL STOP TIME OUT------ 16:10:01 Final Timeout: patient, procedure, and site verified with staff and physician. All members of the team are in agreement. 16:10:03 Right groin site verified by team. 16:10:58 Fire Safety Assessment: A--An alcohol-based skin anteseptic being used preoperatively., B--The operative or invasive procedure is being performed above the xiphoid process or in the oropharynx., C--Open oxygen or nitrous oxide is being used., D--An ESU, laser, or fiber-optic light is being used., E--There are other possible contributors. 16:11:02 Physical assessment completed. ASA score P 2 - A patient with mild systemic disease as per Klever Carrasquillo MD. 16:11:11 2) 60-89 Mildly reduced kidney function, and other findings (as for stage 1) point to kidney disease. 16:11:28 Maximum allowable contrast dose (3.7 X eGFR X 0.75)183 ml. 16:11:32 Sedation plan: IV Moderate Sedation Medication:Versed, Fentanyl 16:11:54 Versed 1 mg I.V. was administered by Andrés Vásquez RN; for sedation; Verbal order read back and verified. 16:12:01 Fentanyl 50 mcg I.V. was administered by Andrés Vásquez RN; for sedation; Verbal order read back and verified. 16:12:02 Procedure started. 16:12:07 Local anesthetic to right femoral artery with Lidocaine 2% by Klever Carrasquillo MD.INITIAL ACCESS ONLY 16:12:16 A 5 Fr sheath was inserted into the Right Femoral artery 16:12:29 A DIAGNOSTIC JL 5 5Fr catheter ([id number]) was advanced over the wire and used for Left Coronary Angiography. 16:12:33 LCA angiography performed. 16:16:45 Catheter removed. 16:16:55 A DIAGNOSTIC 3DRC 5Fr catheter ([id number]) was advanced over the wire and used for Right Coronary Angiography. 16:16:58 RCA angiography performed. 16:19:52 Versed 1 mg I.V. was administered by Andrés Vásquez RN; for sedation; Verbal order read back and verified. 16:19:55 Fentanyl 50 mcg I.V. was administered by Andrés Vásquez RN; for sedation; Verbal order read back and verified. 16:22:05 MORGAN to LAD angiography performed. 16:23:32 Catheter removed. 16:23:41 A DIAGNOSTIC Pigtail 5Fr catheter ([id number]) was advanced over the wire and used for LV Angiography. 16:23:46 LV gram done using YEE 16:23:47 LV hemodynamics recorded. 16:23:49 Injector settings: Ml/sec: 10, Volume: 20, 16:24:34 EF : 55 % 16:24:48 Catheter removed. 16:24:54 ACC Pre-intervention JAYME Flow is 3. 16:25:09 Pre PCI Site: [place] pCirc has 80% stenosis. 16:25:31 INFLATOR Merit BasixCompak (PG6340) opened to sterile field. 16:25:38 SHEATH 6FR [place] (GHR371) opened to sterile field. 16:26:06 Procedure type changed to Cath procedure, Diagnostic procedure, LHC, LHC w/Coronaries w/Grafts, Sedation Charges, Moderate Sedation 10-24 minutes, PCI procedure, Hemochron ACT Test, PTCA, PTCA Initial 16:26:50 Sheath removed intact; hemostasis achieved with Exoseal to the Right Femoral artery. 16:26:50 Sheath upsized to a 6 Fr Short. 16:26:53 GUIDE 6FR XBLAD 3.5 catheter ([id number]) opened to sterile field. 16:27:13 6 Fr XBLAD 3.5 guide catheter was inserted over the wire 16:27:35 BMW wire advanced. 16:27:54 Heparin Bolus 5000 units I.V. was administered by Andrés Vásquez RN; for anticoagulation; verified with dr alas Verbal order read back and verified. 16:28:05 BMW 300cm [place] 2 J wire ([id number]) opened to sterile field. 16:29:48 Integrilin (Bolus 2mg/ml) 7.9 ml I.V. was administered by Andrés Vásquez RN; for antiplatelet therapy; wasted 2.1 ml of vial Verbal order read back and verified. 16:31:41 Inflate balloon Inflation number: 1 A EUPHORA 3.5 x 15 Balloon ([id number]) was prepped and advanced across the Prox CX 80, then inflated to 12 JENNY for 0:45 (min:sec) . 16:31:56 Balloon removed over the wire. 16:32:01 Wire removed. 16:32:01 Guide catheter removed. 16:34:22 Procedure ended.(Physican Out) 16:34:32 Fluoroscopy time 04.60 minutes. 16:34:38 Flurop Dose total: 798 16:34:38 Fluoroscopy dose: 798 mGy 16:34:46 Dose Area Product 93916 mGy/cm. 16:34:53 Contrast amount:Isovue 300 84ml. 16:35:02 Maximum allowable dose exceeded? No. 16:35:03 Sharps counted by scrub and verified by R.N. 16:35:04 Insertion/operative site no bleeding no hematoma. 16:35:07 Post-op/insertion site Right Femoral artery dressed using a 4 x 4 and Tegaderm. 16:35:10 Post right femoral artery:stable 16:35:11 Post Procedure Pulses reassessed and unchanged 16:35:13 Post procedure: right dorsailis pedis pulse 1+ Palpable, but thready & weak; easily obliterated. 16:35:20 Post-procedure physical assessment completed. ASA score P 2 - A patient with mild systemic disease as per Klever Carrasquillo MD. 16:35:23 Post procedure rhythm: unchanged. 16:35:26 Estimated blood loss: 5 ml 16:35:29 Post procedure instruction explained to patient.Patient verbalizes understanding. 16:35:49 Plavix 600 mg P.O. was administered by Andrés Vásquez RN; for antiplatelet therapy; Verbal order read back and verified. 16:36:10 Procedure and supply charges have been captured, reviewed, submitted and are correct. 16:36:41 ACT drawn and resulted at 188 seconds. (normal therapeutic range 180-240 seconds). 16:38:15 EXOSEAL 6Fr (EX600) opened to sterile field. 16:38:59 Procedure Complication : No complications 16:39:02 Vital chart was stopped 16:39:05 [facility] Findings: MVD- will discuss options w/ pt 16:39:08 Operative report dictated upon procedure completion. 16:39:09 See physician's report for complete and final results. 16:39:12 Report given to PCU. 16:39:15 Patient transfered to PCU with Bed. 16:39:17 Procedure ended. 16:39:17 Full Disclosure recording stopped 16:39:34 ACC-PCI Only Patient was given prescriptions, or instructed by Klever Carrasquillo MD to start/continue the following medications upon discharge: Plavix 16:39:35 End room use (Document Last) 16:40:28 End room use (Document Last) Intervention Summary Intervention Notes Time ActionType Lesion and Equipment Action# Pressure Duration Attributes Used 16:31:41 Inflate Prox CX EUPHORA 1 12 00:45 balloon 3.5 x 15 Balloon ([id number]) Device Usage Item Name Manufacture Quantity Catalog Hospital Part Current Minimal L ot# / Number Charge Number Stock Stock Serial# Code ACIST Acist 1 66805 245575 964296 754781 20 Syringe Medical (91342) Systems Inc Bag Microtek 1 934391 70408 357140 5 Decanter Medical Inc. () ACIST Hand Acist 1 97097 278265 615177 939472 5 Control Medical (30535) Systems Inc ACIST Acist 1 70956 705035 412896 727005 5 Manifold Medical (07857) Systems Inc Tegaderm 4 3M 1 1626W 334929 153344 242713 5 x 4 (1626W) Medline Medline 1 [id number] 716784 88544 387084 5 Cath Pack ([id number]) SHEATH 5FR Terumo 1 ZED505 704027 574778 900141 5 [place] (FMW563) EMERALD Cardinal 1 502-455 685662 952274 404722 5 Guide Wire Health (502455) IV Hospira 1 34841-23 748551 45790 431225 5 Extension Set DIAGNOSTIC Cardinal 1 150473N 975948 011970 124796 5 JL 5 5Fr Health catheter (369881Z) DIAGNOSTIC Cardinal 1 170150D 131487 062575 413222 9 3DRC 5Fr Health catheter (383121H) DIAGNOSTIC Cardinal 1 295246I 367598 089580 222943 5 Pigtail 5Fr Health catheter (915252C) INFLATOR [facility] 1 UQ1206 424344 051016 485035 15 [facility] Medical BasixCompak (HJ7353) SHEATH 6FR Terumo 1 PQY219 504324 355039 573291 40 [place] (TUM770) GUIDE 6FR Cardinal 1 96370776 891626 208290 523371 10 XBLAD 3.5 Health catheter (18355067) BMW 300cm Sr 1 6234358W 530837 401435 731871 5 Gypsum 2 Vascular J wire (4466040I) EUPHORA 3.5 Medtronic 1 [id number] 239214 741702 177018 5 2 22507115 x 15 Balloon ([id number]) EXOSEAL 6Fr Cardinal 1 EX600 497792 450945 735306 10 (EX600) Health Signature Audit [place] Stage Time Signature Unsigned Intra-Procedure 02/14/2021 Luke Seymour RT(R) 4:39:58 PM Intra-Procedure 02/14/2021 Andrés Vásquez RN 4:40:28 PM Intra-Procedure 02/14/2021 Klever Chong 4:41:03 PM Sukumar HANCOCK Signatures Performing Physician : Signature : Klever Carrasquillo MD Date : Time : Monitor : Luke Suit RT Signature : Date : Time : Nurse : Buffie Vásquez RN Signature : Date : Time : [address] [place] [address]
[2021-02-12 19:00] VITALS: BP 140/79
[2021-02-12 19:03] LABS: BASOPHILS 1.3 % (0-2); EOSINOPHILS 2.8 % (0-7); HEMATOCRIT 47.1 % (42.0-54.0); HEMOGLOBIN 15.8 g/dL (13.5-17.5); LYMPHOCYTES 20.7 % (15-50); MCH 30.6 pg (26.0-34.0); MCHC 33.6 g/dL (31.0-37.0); MCV 91.2 fL (80.0-100.0); MEAN PLATELET VOLUME 6.6 fL (7.4-10.4); NEUTROPHILS 71.2 % (40-80); PLATELET COUNT 251 10x3/uL (130-400); RBC 5.16 10x6/uL (4.20-6.10); RDW 15.5 % (11.5-14.5); WBC 7.5 10x3/uL (4.8-10.8)
[2021-02-12 19:10] LABS: CALC OSMOLALITY 280 mosm/kg (275-300); CALCIUM 8.4 mg/dL (8.5-10.1); CARBON DIOXIDE 26.4 mmol/L (21.0-32.0); CHLORIDE - SERUM 103 mmol/L (98-107); CREATININE - SERUM 1.2 mg/dL (0.6-1.3); GLUCOSE 148 mg/dL (74-106); POTASSIUM - SERUM 3.9 mmol/L (3.5-5.1); SODIUM 139 mmol/L (136-145); UREA NITROGEN 13 mg/dL (7-18); eGFR NON AFRICAN AMERICAN 66 mL/min (90-120)
[2021-02-12 19:11] LABS: APTT 24.5 SECONDS (22.8-39.4); INR 1.09 (0.85-1.17); PROTIME 13.1 SECONDS (11.6-15.0)
[2021-02-12 19:27] LABS: ALBUMIN 3.3 g/dL (3.4-5.0); ALKALINE PHOSPHATASE 111 U/L (30-120); ALT (SGPT) 21 U/L (10-68); BILIRUBIN - TOTAL 0.42 mg/dL (0.2-1.3); CKMB 2.6 U/L (0.0-3.6); CREATINE KINASE 163 UL (21-232); MAGNESIUM - SERUM 2.2 mg/dL (1.8-2.4); PROTEIN - SERUM 6.8 g/dL (6.4-8.2)
[2021-02-12 19:29] LABS: TROPONIN-I < 0.017 ng/mL (0.000-0.060)
[2021-02-12 22:00] VITALS: BP 102/53
[2021-02-13] VITALS (8 sets, daily range): BP systolic 94–113; BP diastolic 48–78; Ht 167.6 cm; Wt 89.5 kg
--- NOTE | 2021-02-13 07:19 | NUR ---
REPORT TO ONCOMING SHIFT
--- NOTE | 2021-02-13 08:09 | HP ---
PATIENT: TIFF MORALES MEDICAL RECORD: [id number] ACCOUNT: [id number] LOCATION:[facility].E15- : 60 ADMISSION DATE: 02/12/21 PCP: No PCP HISTORY AND PHYSICAL EXAMINATION DATE OF ADMISSION: 02/12/2021 CHIEF COMPLAINT: Chest pain. 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 He started having chest pains earlier in the day and they radiated to his left bicep, which he states is where pain has gone on in the past when he was found to have coronary artery disease. He has had a prior bypass surgery and he has had stents placed. He is followed by Dr. Beyer for this. He also has an abdominal aortic aneurysm and is followed by Dr. España. The patient has no fever, chills, nausea or vomiting. No diaphoresis. No significant shortness of breath at this time. With his past history, he is admitted and cardiology will see him in the morning. PAST MEDICAL AND SURGICAL HISTORY: He had a myocardial infarction many years ago and has had bypass graft done in 2005. Since then, he has also had stents placed, the last of which I believe were in the fall. He also had a small pulmonary embolus in the fall and treated with Eliquis. He has had a CT angiogram of the chest since then and it showed that the PE had cleared. The patient also has COPD, reflux, mild chronic kidney disease, benign tremor. PAST SURGICAL HISTORY: Coronary artery bypass, graft coronary stents, appendectomy, left total hip arthroplasty times 2, right shoulder surgery, right femur faheem placement many years ago. DRUG ALLERGIES: None known. HOME MEDICATIONS: Isosorbide mononitrate 60 mg daily, metoprolol tartrate 25 mg twice a day, albuterol HFA 2 puffs 4 times a day, aspirin 81 mg once a day, Ranexa 500 mg twice a day, rosuvastatin 40 mg at bedtime, lisinopril 5 mg once a day, Mysoline 200 mg at bedtime, Eliquis 5 mg twice a day. DRUG ALLERGIES: None. SOCIAL HISTORY: He is single, on disability due to his heart and his hip. He rents a room from a woman. HABITS: He smokes every day. He drinks alcohol every day. Denies illicit drug use. FAMILY HISTORY: He has a twin brother who also has coronary artery disease. They were adopted. He does not know his biologic parents. REVIEW OF SYSTEMS: GENERAL: No major weight changes. HEENT: No particular sinus or allergy problems. RESPIRATORY: He has COPD, on inhalers, and continues to smoke. CARDIAC: See above history. GASTROINTESTINAL: He has some reflux. HISTORY AND PHYSICAL [id number] BRYANTANASAMIRAJamarTIFF GENITOURINARY: No significant problems there. MUSCULOSKELETAL: He has a few arthritic aches and pains and has had a hip replaced twice. NEUROLOGIC: No migraines or seizures. He has a benign tremor. PSYCHIATRIC: Denies depression or melancholia. PHYSICAL EXAMINATION: VITAL SIGNS: Temperature 97.5, pulse 83, respirations 18, blood pressure 137/75, O2 sat 96%. GENERAL: He appears comfortable, in no acute distress, in ER bed #15. HEENT: Grossly within normal limits. NECK: Supple. No bruit. HEART: Regular rate and rhythm without murmur. LUNGS: Fairly clear. ABDOMEN: Soft, flat, nontender. EXTREMITIES: He denies any edema. He is still wearing his cowboy boots. NEUROLOGIC: Unremarkable. LABORATORY DATA: CBC with a white count of 7500, hemoglobin 15.8, hematocrit 47.1. INR 1.09. Basic metabolic panel: Sodium 139, potassium 3.9, chloride 103, CO2 26.4, BUN 13, creatinine 1.2, glucose 148, calcium 8.4. Liver functions are all normal. Troponin less than 0.017. DIAGNOSTIC STUDIES: Chest x-ray shows no acute process. ASSESSMENT: 1. Chest pain. 2. History of coronary artery disease. 3. History of continued smoking. PLAN: He will be admitted, get serial cardiac enzymes. Cardiology will see him in the morning. Other tests or procedures as warranted. TRANSINT:[id number] Voice Confirmation ID: [id number] DOCUMENT ID: [id number] JERALD YADAV MD at 0809 CC: [id number] DICTATION DATE: 02/12/212327 ZIPPER SLIDE ATTACHER: 02/13/21 0118 ADM IN [id number] [place] [address]
[2021-02-13 09:07] LABS: CALC OSMOLALITY 277 mosm/kg (275-300); CALCIUM 8.3 mg/dL (8.5-10.1); CARBON DIOXIDE 31.2 mmol/L (21.0-32.0); CHLORIDE - SERUM 103 mmol/L (98-107); CREATININE - SERUM 1.3 mg/dL (0.6-1.3); GLUCOSE 85 mg/dL (74-106); POTASSIUM - SERUM 4.1 mmol/L (3.5-5.1); SODIUM 140 mmol/L (136-145); TROPONIN-I < 0.017 ng/mL (0.000-0.060); UREA NITROGEN 13 mg/dL (7-18); eGFR NON AFRICAN AMERICAN 60 mL/min (90-120)
--- NOTE | 2021-02-13 11:45 | NUR ---
LUNCH TRAY SERVED. DENIES CHEST PAIN.
--- NOTE | 2021-02-13 15:30 | NUR ---
SCD DEVICE APPLIED. INSTRUCTED TO WEAR AT ALL TIMES WHILE IN BED.
--- NOTE | 2021-02-13 17:38 | NUR ---
RECEIVED PATIENT FROM ER VIA WHEELCHAIR. PATIENT IS WEARING 1LITER OF 02 VIA NASAL CANNULA. PATIENT IS AWAkE, ALERT AND ORIENTED. PLAN OF CARE REVIEWED AND ASSESSMENT HAS BEEN COMPLETED. PATIENT IS COMPLAINING OF CHEST PAIN, NURSE TO CHECK ORDERS FOR WHAT HE CAN HAVE FOR PAIN. PATIENT SITTING UP EATING DINNER , WHILE SITTING IN CHAIR. CALL LIGHT IN REACH. ROOM ORIENTED TO PATIENT. NAD NOTED.
--- NOTE | 2021-02-13 20:06 | NUR ---
RECIEVED UP IN BED WITH EYES OPEN AND TV ON. UP AD VALARIE. DENIES ANY NEEDS AT THIS TIME.
[2021-02-14] VITALS: BP 90/50
[2021-02-14 05:38] VITALS: BP 91/48
[2021-02-14 08:09] VITALS: BP 128/70
[2021-02-14 09:12] LABS: BASOPHILS 1.2 % (0-2); EOSINOPHILS 1.8 % (0-7); HEMATOCRIT 45.8 % (42.0-54.0); HEMOGLOBIN 15.4 g/dL (13.5-17.5); LYMPHOCYTES 11.4 % (15-50); MCH 30.7 pg (26.0-34.0); MCHC 33.7 g/dL (31.0-37.0); MCV 91.3 fL (80.0-100.0); MEAN PLATELET VOLUME 6.7 fL (7.4-10.4); MONOCYTES 4.9 % (2-11); NEUTROPHILS 80.7 % (40-80); PLATELET COUNT 234 10x3/uL (130-400); RBC 5.02 10x6/uL (4.20-6.10); RDW 15.2 % (11.5-14.5); WBC 7.8 10x3/uL (4.8-10.8)
[2021-02-14 09:22] LABS: ANION GAP 12.5 mmol/L (8-16); CALCIUM 8.1 mg/dL (8.5-10.1); CARBON DIOXIDE 26.9 mmol/L (21.0-32.0); CHOL - HDL RATIO 4.6 ratio (2.3-4.9); CREATININE - SERUM 1.2 mg/dL (0.6-1.3); LDL-HDL RATIO 3.2 ratio (1.5-3.5); POTASSIUM - SERUM 4.4 mmol/L (3.5-5.1)
[2021-02-14 11:00] VITALS: BP 123/60
--- NOTE | 2021-02-14 14:23 | NUR ---
PATIENT PREOP FOR HEART CATH
--- NOTE | 2021-02-14 15:49 | NUR ---
PATIENT TAKEN TO HEART CATH
[2021-02-14] MEDS ORDERED: PLAVIX75 MG PO (18:30)
[2021-02-14 21:34] VITALS: BP 144/86
[2021-02-15 04:32] VITALS: BP 127/77
--- NOTE | 2021-02-15 05:19 | NUR ---
PT DID NOT HAVE RIDE HOME LAST PM, PT REMAINED FLAT AFTER PROCEDURE UNTILL 2100 AND TOLERATED WELL. DENIES CP DURING THE NIGHT. DRESSING TO RIGHT GROIN REMAINS C/D/I. SR ON TELEMETRY. NO ACUTE DISTRESS. [facility].
--- NOTE | 2021-02-15 09:25 | OP ---
PATIENT NAME: TIFF MORALES MEDICAL RECORD: [id number] :60 LOCATION:D.M2 D.2118 ADMISSION DATE:02/12/21 SURGEON: CRYSTAL PERDOMO MD DATE OF OPERATION: 02/14/2021 PROCEDURE: Left heart catheterization, selective coronary angiography, plus MORGAN, plus circumflex, and right femoral artery approach. CATHETERS: A 5-Burmese sheath, 5/4 left and right Rachel, 5/4 pig. The procedure was well tolerated. The patient was returned to the peña. Sheath removed. ExoSeal device was placed. FINDINGS: Left ventriculography in 30-degree YEE view: Normal wall motion. Normal systolic function. CORONARY ANATOMY: 1. Left main: Left main is free of disease. 2. LAD: The LAD fills for a short period of time. It is totally occluded, but could be seen via competitive flow from the MORGAN. 3. Circumflex has an 80% restenosis stent in its proximal portion, fairly discrete. 4. 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 5. MORGAN to the LAD is widely patent throughout its course without evidence of post-anastomotic stenosis and feeds the right well in a left to right in collateral fashion. Plan intervention of the circumflex momentarily. DESCRIPTION: A 5-Burmese sheath was exchanged for a 6-Burmese sheath. XB LAD guide catheter provided excellent guide catheter support followed by 300 cm BMW wire. We used a 3.5 Euphora balloon up to 12 and 14 atmospheres for 45 seconds. A final angiogram showed excellent resolution of 80% restenotic stent. No significant residual. JAYME flow was 3 throughout the procedure. Heparin and Integrilin were used during the case. Sheath closed with ExoSeal device. Patient okay for OR from our standpoint for aortic aneurysm repair via Dr. España. TRANSINT:[id number] Voice Confirmation ID: [id number] DOCUMENT ID: [id number] CRYSTAL PERDOMO MD at 0925 CC: [id number] DICTATION DATE: 02/14/21 1631 METAPHYSICS TEACHER: 02/14/21 1725 ADM IN [place] [id number] [place] [address]
--- NOTE | 2021-02-15 09:42 | NUR ---
IV AND TELEMETRY DCD. DC PLANS GIVEN. UNDERSTANDING VOICED. ESCORTED TO CAR BY W/C.
== END 2021-02-15 09:43 | disposition home or self-care (01) ==
LOC: D.ER 18:30 → D.EDHOLD 21:22 → D.M2 21:22 → OBSVTIME 21:22 → D.M2 02-13 15:28
PROVIDERS: Family Medicine; Internal Medicine Interventional Cardiology; ADMIT Family Medicine; ATTEND Family Medicine
DX: I25.10 Atherosclerotic heart disease of native coronary artery without angina pectoris (principal); I10 Essential (primary) hypertension; I25.2 Old myocardial infarction; J44.9 Chronic obstructive pulmonary disease, unspecified; K21.9 Gastro-esophageal reflux disease without esophagitis; T82.855A Stenosis of coronary artery stent, initial encounter; R07.9 Chest pain, unspecified; F17.203 Nicotine dependence unspecified, with withdrawal